=== PATIENT | female | born 1955 | race Caucasian/White ===

== ENCOUNTER 2018-08-28 13:52 | Day surgery (SDC) | payer OTHER, SELFPAY ==
--- NOTE | 2018-08-28 | PATH_ITS ---
[facility] Accession Number: [id number] . 01 Material submitted: . SIGMOID POLYP AT 20 . 02 Diagnosis: Sigmoid Polyp, Polyp at 20, Biopsy: Tubular adenoma. V/08/29/2018 . 02 Electronically signed: . Debbie Rolle MD, Pathologist NPI- [id number] . 01 Gross description: . Received in one formalin-filled container, labeled with the patient's name and labeled sigmoid polyp at 20, are three 0.1-0.3 cm portions of tissue, entirely submitted in one cassette. ([id number]) /FRR . 02 Pathologist provided ICD-10: D12.5 . 02 CPT . 784411 Performed at: 01 [facility] [address] [id number] MD Ranjith Azul MD Phone: [phone] Performed at: 02 [facility] [address] [place], [place] [id number] MD Debbie Rolle MD Phone: [phone]
[2018-08-28] MEDS: SODIUM CHLORIDE 0.9% 1,000 ML 200 ML IV (13:15)
[2018-08-28 14:17] VITALS: BP 132/71; PULSE 73; RESP 16; TEMP 36.6; BMI 36.1
--- NOTE | 2018-08-28 14:50 | PM.HP.1 ---
History of Present Illness Date Patient Seen: 08/28/18 Time Patient Seen: 14:50 Chief complaint: colonoscopy [id number] Narrative: 63-year-old female who presents for colorectal screening. She has never had any such examination in the past. She denies any gastrointestinal symptoms recently. No nausea, vomiting, abdominal pain, loss of appetite, unexplained weight loss, melena, hematochezia, bright red blood per rectum, change in bowel habits, constipation, or diarrhea. Patient History Medical History No significant past medical history (Acute) Surgical History History of dilation of urethra (Acute) Family & Social History Family History: Reviewed 08/28/18 by Johny Caceres MD Review of Systems Review of Systems All systems reviewed & are unremarkable except as noted in HPI and below Exam Narrative Exam Narrative: Well-nourished well-developed female in no acute distress. Alert oriented x3 Regular rate and rhythm Abdomen soft and nondistended Extremities show no clubbing or cyanosis Objective Labs Labs: No recent laboratory or radiographic studies review Assessment & Plan Plan: Assessment/Plan Narrative: 63-year-old female requiring colorectal screening by age criteria. In fact, she is overdue for such. I recommended colonoscopy. Technical details of the procedure were explained. Risks, benefits, alternatives were discussed. Risks including but not limited to sedation, aspiration, bleeding, pain, missed lesion, incomplete examination, need for further radiographic studies, colonic perforation, need for major abdominal surgery, and all attendant risks of major surgery were discussed in detail. All questions were answered to her satisfaction, and she voiced understanding. Consent was placed on the chart. We will proceed as above.
--- NOTE | 2018-08-28 14:53 | P.HP_ITS ---
History of Present Illness Date Patient Seen: 08/28/18 Time Patient Seen: 14:50 Chief complaint: colonoscopy [id number] Narrative: 63-year-old female who presents for colorectal screening. She has never had any such examination in the past. She denies any gastrointestinal symptoms recently. No nausea, vomiting, abdominal pain, loss of appetite, unexplained weight loss, melena, hematochezia, bright red blood per rectum, change in bowel habits, constipation, or diarrhea. Patient History Medical History No significant past medical history (Acute) Surgical History History of dilation of urethra (Acute) Family & Social History Family History: Reviewed 08/28/18 by Johny Caceres MD Review of Systems Review of Systems All systems reviewed & are unremarkable except as noted in HPI and below Exam Narrative Exam Narrative: Well-nourished well-developed female in no acute distress. Alert oriented x3 Regular rate and rhythm Abdomen soft and nondistended Extremities show no clubbing or cyanosis Objective Labs Labs: No recent laboratory or radiographic studies review Assessment & Plan Plan: Assessment/Plan Narrative: 63-year-old female requiring colorectal screening by age criteria. In fact, she is overdue for such. I recommended colonoscopy. Technical details of the procedure were explained. Risks, benefits, alternatives were discussed. Risks including but not limited to sedation, aspiration, bleeding, pain, missed lesion , incomplete examination, need for further radiographic studies, colonic perforation, need for major abdominal surgery, and all attendant risks of major surgery were discussed in detail. All questions were answered to her satisfaction, and she voiced understanding. Consent was placed on the chart. We will proceed as above.
--- NOTE | 2018-08-28 14:53 | PM.PREOP ---
Pre-operative Note Interval Note History & Physical reviewed/Exam performed by Physician: Yes Changes to H&P: No H&P completed within 30 days and has changed as indicated here:: Patient seen and examined. History and physical examination documented on the chart. Obviously, no changes in the last 10 min. Proceed with colonoscopy today as planned. ASA Class (for procedural sedation): I
[2018-08-28] MEDS: MIDAZOLAM 5 MG/5 ML VIAL IV (15:20)
[2018-08-28] MEDS: fentaNYL 250 MCG/5 ML INJ IV (15:21)
--- NOTE | 2018-08-28 15:24 | PM.OP.ENDO ---
Operative Date/Time/Diagnoses Date of procedure: 08/28/18 Time of procedure: 15:24 Pre-op diagnosis: Colorectal screening Post-op diagnosis: other (Diverticulosis and sigmoid polyp) Procedure & Clinicians Study performed: 1. Sedation per surgeon 2. Colonoscopy with cold forceps polypectomy Same procedure as scheduled: Yes Indications: 63-year-old female who presents for colorectal screening. She has had no prior examination for such. Colonoscopy is currently recommended Surgeon: Johny Caceres Procedure Notes SCOAP/Timeout: Yes Procedure in detail: After obtaining informed consent, the patient was brought to the GI suite and placed in the left lateral decubitus position on the examination table. After placement of appropriate monitors, the patient was given incremental doses of Versed and Fentanyl until an appropriate level of sedation was achieved. A time out was held per SCOAP protocol. A digital rectal examination was performed and did not reveal any masses or obstructing lesions. The colonoscope was gently passed into the patient's anus and the entire colon navigated to the level of the cecum with minimal difficulty. Once in the cecum, the scope was withdrawn being sure to go before and beyond all mucosal folds and prominences and get an excellent examination. The findings are noted above. At the level of the rectal vault, the scope was retroflexed and the internal anal canal was examined. The scope was straightened and air aspirated from the colon. The instrument was removed from the patient's body and the procedure was concluded. The patient was allowed to awaken from sedation without difficulty and taken to the post-anesthesia care unit in good condition. Scope withdrawal time: 9:48 min Sedation minutes: 17 Findings: diverticulosis and polyp Specimen(s): other (Sigmoid polyp at 20 cm) Complications: none Recommendations: Colonscopy in 5 years, High fiber diet and Will call with biopsy results Plan for aftercare: 1. Discharge home Follow up: as needed Disposition: PACU
[2018-08-28 15:25] VITALS: BP 104/63; PULSE 75; RESP 15; TEMP 36.5; O2SAT 94
[2018-08-28 15:30] VITALS: BP 104/63; PULSE 84; RESP 23; TEMP 36.7; O2SAT 94
[2018-08-28 15:35] VITALS: BP 118/77; PULSE 77; RESP 20; TEMP 36.6; O2SAT 98
[2018-08-28 15:52] VITALS: BP 129/60; PULSE 71; RESP 16; TEMP 36.7; O2SAT 99
--- NOTE | 2018-08-28 16:08 | SUR.PHASEII ---
stable phase 2, friend arrived, d/c instructions discussed.. both voiced an understanding.
== END 2018-08-28 16:09 | disposition home or self-care (01) ==
PROVIDERS: PCP Family Medicine; Visit Provider Surgery
PROC: 0DJD8ZZ Inspection of Lower Intestinal Tract, Via Natural or Artificial Opening Endoscopic (ICD-10-PCS; CPT 45378; principal; 2018-08-28 15:00)
DX: Z12.11 Encounter for screening for malignant neoplasm of colon (principal); K57.30 Diverticulosis of large intestine without perforation or abscess without bleeding; D12.5 Benign neoplasm of sigmoid colon
CPT/HCPCS: 45380; 99152; J2250; J3010

== ENCOUNTER → 2019-04-22 16:46 | Outpatient (CLI) | payer OTHER, SELFPAY ==
[2019-04-22 16:57] LABS: Bacteria Urine None Seen
[2019-04-22 17:12] LABS: Hematocrit 42.6 % (36-46); Hemoglobin 13.8 g/dL (12.0-16.0); Mean Corpuscular HGB Conc 32.5 % (30-36); Mean Corpuscular Hemoglobin 27.4 PG (26-34); Mean Corpuscular Volume 84.3 fL (80-100); Platelet Count 286 X10^3/uL (150-400); Red Blood Cell Count 5.05 X10^6/uL (4.0-5.2); Red Cell Distribution Width 14.2 % (11.6-14.8); White Blood Cell Count 8.9 X10^3/uL (4.5-11.0)
[2019-04-22 17:13] LABS: Appearance Urine UA CLEAR; Bilirubin Urine UA NEGATIVE (NEGATIVE); Color Urine UA YELLOW; Glucose Urine UA NEGATIVE (Negative); Ketones Urine UA NEGATIVE (NEGATIVE); Leukocyte Esterase Urine UA NEGATIVE (NEGATIVE); Nitrite Urine UA NEGATIVE (Negative); Occult Blood Urine UA TRACE-LYSED (Negative); Protein Urine UA NEGATIVE (Negative); Urobilinogen Urine UA 0.2 E.U./dL (0.2); pH Urine UA 6.5 (4.5-8.0)
[2019-04-22 17:30] LABS: Hemoglobin A1C% w Est Avg Glu 5.4 % (4.0-6.0)
[2019-04-22 17:36] LABS: Culture Indicated Urine Cult Not Indicated; RBC Urine 0-1/HPF (0-5/HPF); Squamous Epithelial Cell Urine 0-1 /HPF (0-5/HPF); WBC Urine 0-1/HPF (0-5/HPF)
[2019-04-22 18:18] LABS: BUN Creatinine Ratio 37.5 (6-22); Blood Urea Nitrogen 15 mg/dL (7-17); Calcium 9.9 mg/dL (8.4-10.2); Carbon Dioxide 24 mmol/L (22-32); Chloride 104 mmol/L (98-107); Estimated Glomerular Filt Rate > 60.0 mL/min (>60); Glucose 85 mg/dL (80-110); HEMOLYSIS < 15 (0-50); Sodium 138 mmol/L (137-145)
== END ==
PROVIDERS: PCP Family Medicine; Visit Provider Orthopaedic Surgery
DX: N39.0 Urinary tract infection, site not specified (principal); R73.9 Hyperglycemia, unspecified; Z01.818 Encounter for other preprocedural examination
CPT/HCPCS: 36415; 80048; 81001; 83036; 85027; 93005

== ENCOUNTER → 2020-03-22 16:56 | Outpatient (CLI) | payer OTHER, SELFPAY ==
--- NOTE | 2020-03-22 | DI.RAD.S_ITS ---
PROCEDURE: XR HIP W PEL IF DONE RT 2V INDICATIONS: RIGHT HIP PAIN TECHNIQUE: 2 views of the hip were acquired. COMPARISON: None. FINDINGS: Bones: No fractures or dislocations. No suspicious bony lesions. The visualized pelvic ring appears intact. Moderate asymmetric right hip joint narrowing with periarticular osteophyte formation. Degenerative disc and facet disease involves the inferior lumbar spine. Soft tissues: No suspicious soft tissue calcifications or masses. IMPRESSION: 1. Moderate asymmetric right hip joint degeneration. Dictated by: Will Patterson [facility] Interpreted: Freddie Sandoval MD on 03/22/2020 at 17:12 Approved by: Freddie Sandoval M.D. on 03/22/2020 at 18:20
== END ==
PROVIDERS: PCP Family Medicine; Referring Provider Family Medicine; Visit Provider Family Medicine
DX: M25.551 Pain in right hip (principal); M16.11 Unilateral primary osteoarthritis, right hip
CPT/HCPCS: 73502

== ENCOUNTER → 2021-08-30 11:30 | Outpatient (CLI) | payer OTHER, SELFPAY ==
[2021-08-30 12:19] LABS: Add Manual Diff / Slide Review NO; Basophils Absolute Auto 100 /uL (0-100); Eosinophils Absolute Auto 300 /uL (0-450); Eosinophils Percent Auto 4.2 % (2-4); Hematocrit 42.2 % (36-46); Hemoglobin 13.6 g/dL (12.0-16.0); Lymphocytes Absolute Auto 2000 /uL (1100-4500); Lymphocytes Percent Auto 27.3 % (25-40); Mean Corpuscular HGB Conc 32.2 % (30-36); Mean Corpuscular Volume 83.7 fL (80-100); Monocytes Absolute Auto 900 /uL (0-900); Monocytes Percent Auto 12.3 % (3-14); Neutrophils Absolute Auto 4100 /uL (1500-7000); Neutrophils Percent Auto 55.2 % (50-75); Platelet Count 257 X10^3/uL (150-400); Red Blood Cell Count 5.04 X10^6/uL (4.0-5.2); Red Cell Distribution Width 14.2 % (11.6-14.8); White Blood Cell Count 7.4 X10^3/uL (4.5-11.0)
[2021-08-30 12:36] LABS: Appearance Urine UA CLEAR; Bilirubin Urine UA NEGATIVE (NEGATIVE); Color Urine UA YELLOW; Glucose Urine UA NEGATIVE (Negative); Ketones Urine UA TRACE (NEGATIVE); Leukocyte Esterase Urine UA NEGATIVE (NEGATIVE); Nitrite Urine UA NEGATIVE (Negative); Occult Blood Urine UA 2+ (Negative); Protein Urine UA NEGATIVE (Negative); Urobilinogen Urine UA 0.2 E.U./dL (0.2)
[2021-08-30 13:00] LABS: Bacteria Urine None Seen; RBC Urine 1-5/HPF (0-5/HPF); Squamous Epithelial Cell Urine 0-1 /HPF (0-5/HPF); WBC Urine 0-1/HPF (0-5/HPF)
[2021-08-30 13:01] LABS: Culture Indicated Urine Cult Not Indicated
[2021-08-30 13:06] LABS: Blood Urea Nitrogen 17 mg/dL (7-17); Calcium 9.5 mg/dL (8.4-10.2); Carbon Dioxide 25 mmol/L (22-32); Chloride 105 mmol/L (98-107); Estimated Glomerular Filt Rate > 60.0 mL/min (>60); Glucose 99 mg/dL (80-110); HEMOLYSIS < 15 (0-50); Potassium 4.3 mmol/L (3.4-5.1); Sodium 138 mmol/L (137-145)
[2021-08-30 13:08] LABS: Hemoglobin A1C% w Est Avg Glu 5.7 % (4.0-6.0)
== END ==
PROVIDERS: PCP Family Medicine; Referring Provider Orthopaedic Surgery; Visit Provider Orthopaedic Surgery
DX: Z01.812 Encounter for preprocedural laboratory examination (principal); Z01.818 Encounter for other preprocedural examination; R73.9 Hyperglycemia, unspecified; N39.0 Urinary tract infection, site not specified
CPT/HCPCS: 36415; 80048; 81001; 83036; 85025; 93005; 93010

== ENCOUNTER → 2021-11-06 11:15 | Outpatient (CLI) | payer OTHER, SELFPAY ==
[2021-11-06 15:26] LABS: COVID19 -Nasal RAPID Negative (Negative)
== END ==
PROVIDERS: PCP Family Medicine; Visit Provider Nurse Practitioner Family
DX: Z20.822 Contact with and (suspected) exposure to COVID-19 (principal)
CPT/HCPCS: 87635; C9803

== ENCOUNTER 2021-11-07 06:16 | Day surgery (SDC) | payer OTHER, SELFPAY ==
[2021-11-02 12:03] VITALS: BMI 34.0
[2021-11-07] VITALS (9 sets, daily range): BP systolic 113–135; BP diastolic 67–81; PULSE 64–84; RESP 10–18; TEMP 36.3–37; O2SAT 91–98; BMI 34.0
--- NOTE | 2021-11-07 | DI.RAD.S_ITS ---
PROCEDURE: XR HIP W PEL IF DONE RT 2V INDICATIONS: anterior right hip repacement TECHNIQUE: 6 intraoperative fluoroscopic view(s) of the hip acquired. COMPARISON: [facility], , XR HIP W PEL IF DONE RT 2V, 03/22/2020, 16:54. FINDINGS: Intraoperative fluoroscopic images shows right total hip arthroplasty in progress. IMPRESSION: Fluoro guidance was provided intraoperatively for right total hip arthroplasty. Dictated by: Salomón Perry M.D. on 11/07/2021 at 11:52 Approved by: Salomón Perry M.D. on 11/07/2021 at 11:52
--- NOTE | 2021-11-07 06:00 | DI.RAD.S_ITS ---
PROCEDURE: XR HIP W PEL IF DONE RT 2V INDICATIONS: SEAN TECHNIQUE: AP pelvis and lateral view of the right hip acquired. COMPARISON: [facility], [facility]ONDRA, XR HIP W PEL IF DONE RT 2V, 11/07/2021, 9:43. FINDINGS: Bones: Patient is status post right hip arthroplasty, with hardware components in expected positions. The hip joint appears congruent. The visualized bony structures appear intact. Soft tissues: Overlying postoperative changes are noted. No suspicious soft tissue densities. IMPRESSION: Postop changes from right total hip arthroplasty with anatomic right hip alignment. Dictated by: Salomón Perry M.D. on 11/07/2021 at 11:50 Approved by: Salomón Perry M.D. on 11/07/2021 at 11:51
[2021-11-07] MEDS: ACETAMINOPHEN 325 MG TABLET 975 MG PO (06:54)
[2021-11-07] MEDS: CELECOXIB 200 MG CAPSULE PO (06:54)
[2021-11-07] MEDS: VANCOMYCIN 1,000 MG/200 ML PIGGYBACK 200 MG IV (06:54)
[2021-11-07] MEDS: LACTATED RINGERS 1,000 ML 42 ML IV ×3 (06:55→11:13)
--- NOTE | 2021-11-07 07:41 | PM.PREOP ---
Pre-operative Note COVID-19 COVID-19 status: Negative Interval Note History & Physical reviewed/Exam performed by Physician: Yes Changes to H&P: No
--- NOTE | 2021-11-07 07:45 | PM.OP.1 ---
Operative Date/Time/Diagnoses Date of procedure: 11/07/21 Time of procedure: 07:45 Pre-op diagnosis: right hip OA Post-op diagnosis: same Procedure & Clinicians Procedure: right hip OA Same procedure as scheduled: Yes Indications: The patient has had progressively worsening right hip pain with radiographic changes consistent with arthritis. Non-operative management has failed and the patient has requested total hip replacement. The risks, benefits and alternatives to surgery were discussed with the patient prior to proceeding. Risks discussed included, but were not limited to, failure to relieve pain, leg length discrepancy, dislocation, stiffness, infection, nerve damage, deep venous thrombosis, pulmonary embolism, stroke, coma, heart attack, permanent paralysis and , as well as the potential need for eventual revision of the prosthetic. Surgeon: Keli Chadwick Dot Net Developer: Hamida Casarez Anesthesia Type: General and Spinal Operative Notes Findings: Severe right hip osteoarthritis, adequate bone, soft femur, adequate stability Closure Type: primary Specimen(s): none sent Prosthetic devices, grafts, tissues, transplants, or devices: [employer]wick [employer]hew size 52 R3 cup, neutral poly liner, 36 x -3 Oxinium head,one 15 mm x 6.5 screw, size 10 standard offset anthology Estimated Blood Loss (mL): 250 Blood products transfused: none Procedure in detail: The patient was brought to the operating room. Patient was carefully positioned in the supine position. Time-out was performed and antibiotics were given. Anesthesia was induced. She was positioned in the on the table in order to allow hyperextension of the hip. The right lower extremity was prepped and draped in a standard sterile fashion. An anterior right hip incision was made 1 fingerbreadth lateral to the anterior superior iliac spine and extended distally towards the greater trochanter. Dissection was carried out through skin and subcutaneous tissues. Superficial hemostasis was achieved. The fascia over the tensor fascia anjelica was defined and incised with a knife. Two Allis clamps were used to grasp the fascia. Tensor fascia anjelica was retracted laterally. A gelpi retractor was placed. Dissection was carried out down along the neck. The circumflex vessels were carefully identified and cauterized with the Aqua Mantis. There was good visualization of the femoral neck. A Cobra was placed superior to the neck and the gluteus fibers were carefully stripped from that superior aspect of the capsule. A 2nd retractor was placed along the inferior aspect of the neck. The rectus insertion along the capsule was partially released. A 3rd retractor that was then gently placed over the rim of the acetabulum under the rectus. Capsule was carefully incised and released from the intertrochanteric line circumferentially superior to the mid sagittal line and inferiorly to the mid sagittal line until the lesser trochanter was palpable. A tag stitch was placed both in the superior and inferior limb of the capsular insertion. Along the acetabulum capsule was also released up to the mid sagittal 12:00 position. A portion of the labrum was resected. A saw was used to perform an osteotomy at the level of the intertrochanteric line and the junction of the superior femoral neck leaving approximately 1 finger breath of residual inferior neck above the lesser trochanter. A 2nd cut was made along the femoral neck at the base of the head and a napkin ring of neck was removed. Corkscrew was placed in the femoral head and the head was removed without difficulty. Retractors were then repositioned around the acetabulum. Residual labrum was resected and additional osteophytes were removed. A reamer that was 4 mm below the templated size was placed by hand in the acetabulum and it was reamed to centralize the acetabulum. It was then reamed up to 2 under the templated size and fluoroscopy was brought in to confirm the position of the reaming and depth of reaming. I reamed 1 under the anticipated size. A trial cup was placed and noted that it was appropriately sized and fluoroscopy confirmed position and depth. The component was open and inserted without difficulty fluoroscopic imaging was used to confirm that the cup had been adequately seated and was well positioned. It was further stabilized with a single screw. Neutral poly liner was placed. The cup was tested and noted to be stable. Attention was then directed to the femur. The femur was gently hyperextended additional capsular release was performed as needed in order to allow adequate visualization of the proximal femur with elevation of the femur. Patient was placed in a hyperextended slightly adducted position with maximum external rotation. Box osteotome was used to check for any residual neck as well as sclerotic bone along the trochanter. Carpenter pepper was placed in the femur. Additional broaching was performed. Canal finder was used to determine the alignment of the canal and position. Size 1 broach was placed. The canal was then appropriately broached up to the templated size as long as there was adequate stability of the broach and serial advancement of the broach without excessive impingement. Specific attention was directed at avoiding varus attempting to direct the distal aspect of the broach more anteriorly and avoiding excessive anteversion. Trial reduction showed acceptable range of motion, good stability, no posterior impingement, moravian of leg length and appropriate lateral shuck. I also hyperflexed the hip and checked that there was no impingement anteriorly and there was good stability with flexion, adduction and internal rotation. Marcaine and Exparel were injected. The stem was placed without difficulty. Repeat trial reduction and x-ray showed acceptable overall position, length, and no evidence of the femoral fracture. Final head was placed. Wound was meticulously irrigated with normal saline. The hip was reduced and additional Exparel and Marcaine were injected. The capsule was closed with interrupted nonabsorbable sutures. The fascia of the tensor was closed with interrupted and running Vicryl. No drain was placed. Any tensor fascia anjelica muscle that appeared to be contused or injured which was a minimal amount was carefully resected. Capsule around the tensor was injected with Exparel and Marcaine. The skin was closed with barbed stitches for the subcutaneous tissue and skin. We also used surgical glue. The wound was dressed sterilely. Brief Betadine soak was also used and was meticulously irrigated with normal saline. Patient was transferred to recovery room in satisfactory condition. Complications: none Post-operative Condition: stable Disposition: Acute Care Plan for aftercare: The patient will be maintained on a standard total hip replacement protocol with weight bearing as tolerated and anterior hip precautions. The patient will receive Aspirin and sequential compression devices for DVT prophylaxis. The patient will be discharged home when safe for the home environment.
[2021-11-07] MEDS: CEFAZOLIN 2 GM/20 ML SYRINGE IV ×2 (08:00→17:30)
[2021-11-07] MEDS: TRANEXAMIC ACID 1,000 MG VIAL 2000 MG INJ ×2 (08:15→10:16)
--- NOTE | 2021-11-07 08:57 | SUR.OPER ---
Supine on padded Collins table with bilateral legs secured in padded positioning boots and suspended in positioning spars, operative leg in traction per surgeon. Head on one pillow. Arm on non-operative side secured on padded armboard <90 degrees abduction. Arm on operative side padded and resting across chest then secured with tape over sheet. Padded perineal post in place per surgeon.
[2021-11-07] MEDS: BUPIVACAINE 0.25% (PF) 60 ML, EPINEPHrine 0.3 MG INJ (09:02)
[2021-11-07] MEDS: BUPIVACAINE LIPOSOME 266 MG/20 ML VIAL INJ (09:03)
[2021-11-07] MEDS: OXYCODONE IR 5 MG TABLET PO (11:09)
[2021-11-07] MEDS: ONDANSETRON 4 MG/2 ML INJ IV (11:09)
[2021-11-07] MEDS: LACTATED RINGERS 1,000 ML 125 ML IV ×2 (11:30→22:02)
[2021-11-07] MEDS: HYDROMORPHONE 2 MG TABLET PO (11:45)
--- NOTE | 2021-11-07 14:05 | PT.IIE ---
Current Diagnoses Unilateral primary osteoarthritis, right hip (11/07/21) Surgery Performed Operation Date: 11/07/21 07:45 Actual Procedures p Total Hip Arthroplasty/Anterior Approach(Right) - Keli Chadwick MD Medical History (Last Updated 11/02/21 @ 12:09 by Chelsea Iniguez RN) Depression No significant past medical history Osteoarthritis Physical Therapy Inpatient Evaluation/Re-Eval M1 PT/OT-IP Prior Functional Status Start: 11/07/21 15:30 Freq: NEEDED Status: Active Protocol: Document 11/07/21 14:05 AB (Rec: 11/07/21 15:41 AB [id number]) Medical Review Prior Functional Status Medical History Reviewed Yes Communication able to make needs known Mobility and Gait pt stated that she is modified idnependent with all mobilities and ambulation without AD but started using a SPC for ~ 1 month due to hip pain Social History Household Members none Living Arrangements House Number of Floors (Floors) One Floor Number of Stairs To Enter/Railing? 2 steps without rails to enter Home Environment Standard Height Toilet,Walk in Shower Home Equipment Straight Cane,Raised Toilet Seat w/Armrests,Shower Seat without Backrest,Hand Held Shower Additional Social History Comment pt plans to go to her sister's house for ~ 8 days and then go back to her own home and her daughters will stay with her to assist her at her house ; home set up is regarding pt' s sister's house pt has an Up walker M2 PT-IP Current Condition Start: 11/07/21 15:30 Freq: NEEDED Status: Active Protocol: Document 11/07/21 14:05 AB (Rec: 11/07/21 15:41 AB [email or web address]) Physical Therapy Current Condition Current Condition Evaluation Date 11/07/21 Treatment Diagnosis s/p R SEAN anterior approach; difficulty in walking Onset Date 11/07/21 M3 PT-IP Subjective Start: 11/07/21 15:30 Freq: NEEDED Status: Active Protocol: Document 11/07/21 14:05 AB (Rec: 11/07/21 15:41 AB [id number]) Subjective Physical Therapy Visit Type Type Initial Evaluation Visit Start Time 14:05 Visit Stop Time 15:08 Total Visit Minutes 63 Number of PUGGER HELPER Visits 0 Physical Therapy Visit Comments Patient Comments pt is agreeable to do PT Therapy Pain Assessment Pain Present Pain Present Denied Pain M4 PT-IP Mobility and Gait Start: 11/07/21 15:30 Freq: NEEDED Status: Active Protocol: Document 11/07/21 14:05 AB (Rec: 11/07/21 15:41 AB [id number]) PT-Bed Mobility Assessment Supine to Sit Supine to Sit Standby Assistance,1 Person Assistance Sit to Supine Sit to Supine Standby Assistance,1 Person Assistance PT-Transfer Assessment Sit to and From Stand Sit to and from Stand Contact Guard Assistance,1 Person Assistance,Use of Upper Extremities Equipment Transfer Assistive Device Gait Belt,Front Wheeled Walker Orthotic/Prosthetic Devices or Brace: No Transfers Transfer Destination Toilet Transfer Technique ambulated Transfer Ability Level of Assist Minimal Assistance Comments Mobility Comments educated pt on anterior hip precautions. completed supine to sit SBA. able to sit on EOB SBA. pt without c/o dizziness/nausea. BP: 138/67. completed sit to stand min A and ambulated to the toilet using FWW min A and cues. educated on doing toileting needs and cues with hip precautions. completed sit to stand from the toilet CGA and ambulated to the sink min A using FWW. able to maintain standing balance CGA while completing handwashing. pt agreed to ambulate further a completed 35 ft using FWW min A. pt went back to bed. completed sit to supine SBA. positioned in bed. call light and table placed within reach . ice pack provided. talked to pt regarding FWW use for home. pt requested FWW to be dispensed to her throught the hospital. will obtain MD orders and dispense upon d/c. Gait Assessment Gait Gait Assistance Required: Minimum Assistance Distance (Feet) 35 Able to Maintain Weight Bearing Status Yes During Gait Assistive Devices Assistive Device Gait Belt Orthotic/Prosthetic Devices or Brace: No Gait Deviations General Gait Pattern Antalgic Factors Limiting Gait Function Factors Limiting Gait Function Decreased Activity Tolerance, Decreased Strength,Limited Range of Motion,Poor Balance, Poor Safety Awareness PT-Balance Assessment Sitting Balance and Reactions Static Sitting Balance Ability Good Dynamic Sitting Balance Ability Good Standing Balance and Reactions Static Standing Balance Ability Fair Dynamic Standing Balance Ability Fair Device Used FWW M5 PT-IP Objective Assessments Start: 11/07/21 15:30 Freq: NEEDED Status: Active Protocol: Document 11/07/21 14:05 AB (Rec: 11/07/21 15:41 [id number]) Orientation Orientation/Cognition Level of Alertness Alert Orientation Name,Place,Situation Language Function Ability No Deficits Noted Safety Awareness Understands Safety Issues Memory Description Short Term Impaired Gross Range of Motion Lower Extremity ROM Assessment Within Functional Limits Strength Lower Extremity Strength Assessment Right Impaired Hip 3+/5 Knee 4-/5 Coordination Assessment Gross Coordination Gross Coordination WNL Sensation Assessment Sensation Gross Sensation WNL Muscle Tone Muscle Tone WNL Yes M6 PT-IP Treatment Start: 11/07/21 15:30 Freq: NEEDED Status: Active Protocol: Document 11/07/21 14:05 AB (Rec: 11/07/21 15:41 [id number]) Physical Therapy Treatment Education Education Provided Precautions,Weight Bearing Status,Post-Op Packet,Safety M7 PT-IP Assessment and Plan Start: 11/07/21 15:30 Freq: NEEDED Status: Active Protocol: Document 11/07/21 14:05 AB (Rec: 11/07/21 15:41 [email or web address]) PT Summary Assessment and Plan Potential Rehabilitation Potential Good Status of Condition at Evaluation Stable Summary Impairments Pain,ROM,Strength,Balance, Coordination,Sensation,Tone, Cognition,Bed Mobility, Transfers,Gait,Activity Tolerance Assessment Summary pt requiring min A with ambulation using FWW and plans to go home with her sister to assist her. pt stated that she has outpt PT scheduled. will continue to assess progress. Goals Bed Mobility Goal Independent Transfer Goal Independent,Front Wheeled Walker Gait Goal Independent,Front Wheel Walker Gait Distance 200 Other Goals up/down 2 steps SPC /STEEPING PRESS OPERATOR min A Days to Meet Goals 5 Frequency of Treatment Frequency Of Treatment Twice a Day Treatment Plan Physical Therapy Treatment Plan Bed Mobility Training,Transfer Training,Gait Training, Therapeutic Exercise,Balance Retraining,Post Op Education, Discharge Planning,Hot or Cold Pack,Neuromuscular Re-ed, Coordination Retraining,Manual Therapy Precautions Anterior Hip Precautions No Hip Extension,No Hip External Rotation Weight Bearing Status Weight Bearing Status Weight Bear as Tolerated Allowed Weight Bearing Amount (enter % RLE WBAT or #) (%) Recommendations To Nursing Amount of Assist Needed 1 Person Assist Discharge Recommendations PT Discharge Recommendations Home with Assistance, Outpatient PT Equipment Needed for Home Before FWW Discharge Transportation Needs at Discharge Private Vehicle
[2021-11-07] MEDS: ACETAMINOPHEN 325 MG TABLET 650 MG PO ×2 (14:39→21:33)
[2021-11-07] MEDS: GABAPENTIN 300 MG CAPSULE PO ×2 (14:39→21:34)
[2021-11-07] MEDS: OXYCODONE IR 10 MG TABLET PO ×2 (14:39→22:04)
--- NOTE | 2021-11-07 19:50 | PC.NURSE ---
Pt arrived from PACU at 1130, A&OX3. VSS, afebrile on RA. Aquacel to R hip c/d/i. She reports pain well controlled with prn medications. PT works with her and she ambulates to the bathroom and voids. She denies numbness or tingling to BLE's. She has good po intake. IVF LR at 100ml/hr. Continuous monitoring.
[2021-11-07] MEDS: DOCUSATE 100 MG CAPSULE PO (21:34)
[2021-11-07] MEDS: ASPIRIN EC 81 MG TABLET PO (21:34)
[2021-11-07] MEDS: SODIUM CHLORIDE 0.9% FLUSH 10 ML IV (21:36)
[2021-11-08] VITALS: BP 108/63; PULSE 68; RESP 17; TEMP 36.6; O2SAT 95
[2021-11-08] MEDS: CEFAZOLIN 2 GM/20 ML SYRINGE IV (00:41)
[2021-11-08] MEDS: OXYCODONE IR 10 MG TABLET PO ×4 (00:44→09:55)
[2021-11-08 03:00] VITALS: BP 108/70; PULSE 67; RESP 17; TEMP 36.2; O2SAT 95
[2021-11-08 05:57] LABS: Hematocrit 31.4 % (36-46); Hemoglobin 10.3 g/dL (12.0-16.0)
--- NOTE | 2021-11-08 07:54 | PM.DS.1 ---
History of Present Illness History of Present Illness Date Patient Seen: 11/08/21 Time Patient Seen: 07:54 Chief complaint: Hip pain Narrative: Patient notes mild right hip pain. Denies fever chills. No nausea vomiting. Patient states she has some assistance at home. Otherwise without complaints. Discharge Providers Provider Discharge Date: 11/08/21 Primary care physician: Reynold Olivarez MD Consults: 11/07/21 06:00 Consult to Anesthesiology Routine Comment: Consulting Provider: Anesthesiologist Reason for consultation: Regional block for post operative pain control 11/07/21 11:01 Consult to Discharge Planning Routine Comment: Consult to Physical Therapy Evaluate & Treat Comment: Physician Instructions: post op SEAN protocol Consult to Respiratory Therapy Evaluate & Treat Comment: Physician Instructions: Evaluate and treat Discharge provider: Dima Gu PA-C Summary Hospital Course Discharge Diagnosis: Severe right hip osteoarthritis Hospital Course: right hip OA Same procedure as scheduled: Yes Indications: The patient has had progressively worsening right hip pain with radiographic changes consistent with arthritis. Non-operative management has failed and the patient has requested total hip replacement. The risks, benefits and alternatives to surgery were discussed with the patient prior to proceeding. Risks discussed included, but were not limited to, failure to relieve pain, leg length discrepancy, dislocation, stiffness, infection, nerve damage, deep venous thrombosis, pulmonary embolism, stroke, coma, heart attack, permanent paralysis and , as well as the potential need for eventual revision of the prosthetic. Surgeon: Keli Chadwick Electronic Engineering Draftsperson: Hamida Casarez Anesthesia Type: General and Spinal Operative Notes Findings: Severe right hip osteoarthritis, adequate bone, soft femur, adequate stability Closure Type: primary Specimen(s): none sent Prosthetic devices, grafts, tissues, transplants, or devices: Chadwick [employer] Nephew size 52 R3 cup, neutral poly liner, 36 x -3 Oxinium head,one 15 mm x 6.5 screw, size 10 standard offset anthology Estimated Blood Loss (mL): 250 Blood products transfused: none Patient admitted to the hospital for right total hip arthroplasty. Patient consented to the same. Patient taken operating room underwent right total hip arthroplasty. Patient back in her room recovering well as in stable condition. Patient will work with physical therapy this morning. Discharge home after physical therapy is safe for home environment. Status at Discharge Cognitive/behavioral status at discharge: oriented and at baseline, oriented Functional status at discharge: uses cane/walker Overall status at discharge: patient is progressing back to baseline Exam Vital Signs (past 8 hours): - 11/08/21 00:00 11/08/21 03:00 Temperature 97.8 F 97.2 F L Pulse Rate 68 67 Respiratory Rate 17 17 Blood Pressure 108/63 108/70 Pulse Oximetry 95 95 Oxygen Delivery Method Room Air Oxygen Flow Rate 0 Narrative Exam Narrative: Pleasant female resting comfortably in bed in no apparent distress. Dressing is Clean, dry, intact.. Motor functions intact bilateral lower extremities. Sensation grossly intact to light touch bilateral lower extremities. Objective Labs Result Diagrams: 11/08/21 05:19 Labs: Laboratory Results - last 24 hr 11/08/21 05:19 Hgb 10.3 L Hct 31.4 L PFSH Medical History Depression No significant past medical history Osteoarthritis Surgical History History of dilation of urethra History of surgery 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) Social History household members: none Smoking Status: Current some day smoker alcohol intake: current Discharge Assessment & Plan Assessment and Plan Assessment: Patient progressing as expected status post right total hip arthroplasty Plan of Treatment: Discharge home today in stable condition Discharge Plan Discharge Plan Patient Disposition: Home Discharge orders & Medications Discharge Orders: Discharge (Order); Ordered 11/08/21 Ordered By: Dima Gu Prescriptions: New acetaminophen 325 mg Tablet 650 mg PO TID Qty: 60 0RF polyethylene glycol 3350 17 gram Powder In Packet 17 gm PO DAILY PRN (Reason: Constipation) Qty: 20 0RF aspirin 81 mg Tablet,Delayed Release (Dr/Ec) 81 mg PO BID Qty: 60 0RF docusate sodium 100 mg Capsule 100 mg PO BID Qty: 20 0RF oxycodone 10 mg Tablet 10 mg PO Q3HR PRN (Reason: Pain, Severe (7-10)) Qty: 60 0RF Continued gabapentin 300 mg Capsule 300 mg PO TID 0RF Follow up/Referrals: Reynold Olivarez MD [Primary Care Provider] - Keli Chadwick MD [Physician] - As previously scheduled (Follow up with Dr Chadwick on 11/22/2021 @ 11:00 am at [facility] in [place].) Diet/Activity/Treatments Diet: Diet as Tolerated Activity: Activity as tolerated. Anterior hip precautions on RIGHT. Cold/Heat Therapy: Ice to hip as needed for pain. Skin/Wound/Dressing Care Report to your healthcare provider any signs of infection, such as:: chills, fever, night sweats, increased pain, unusual drainage and unusual redness Dressing: May shower. Leave dressing in place until follow up appointment. No bathing or otherwise soaking incision. Call the office if the dressing becomes saturated inside. Visit Report/Discharge Packet Instructions: DI for Hip Replacement Stand Alone Forms: Surgery Discharge Discharge Data Primary Care Provider: Reynold Olivarez Attending Provider: Keli Chadwick
[2021-11-08] MEDS: GABAPENTIN 300 MG CAPSULE PO ×2 (08:45→15:56)
[2021-11-08] MEDS: DOCUSATE 100 MG CAPSULE PO (08:45)
[2021-11-08] MEDS: ACETAMINOPHEN 325 MG TABLET 650 MG PO ×2 (08:45→15:56)
[2021-11-08] MEDS: ASPIRIN EC 81 MG TABLET PO (08:45)
[2021-11-08 09:24] VITALS: BP 127/73; PULSE 76; RESP 20; TEMP 36.7; O2SAT 95
--- NOTE | 2021-11-08 09:32 | CM.DANOTE ---
DCP: Case received, EMR reviewed and met with patient. Introduced self and role. Was able to obtain information regarding patient's baseline activity status prior to surgery, as well as her current living situation. DCP assessment completed with information currently available. Patient is a 66 year old female who admitted yesterday morning to the care of the orthopedic team. PCP: Dr. Olivarez. Payer: [facility]. Patient came to the hospital for a surgical procedure. Patient had right hip OA. She has history of osteoarthritis of her right hip. Met with patient in her room. She is alert and oriented, pleasant. Patient worked with therapy yesterday, and will work with them again today. confirmed that she resides in [place]. She is a , but stated that she will be staying at her friends for a while, then, going back home and her daughters will be with her. At her baseline, she uses a cane and walker. P: Patient has discharge orders for today, pending working with therapy. Catia Amaral RN/Facility Engineer Discharge Planning/Care Management Advanced directive, confirm from FAMILY Start: 11/07/21 11:46 Freq: Q24H Status: Active Protocol: Document 11/07/21 11:46 AKP (Rec: 11/07/21 11:47 AKP [id number]) Advance Directive, confirm on record Time 11:46 Person contacted pt to ask family Copy received No CM Discharge Assessment Start: 11/08/21 09:30 Freq: Status: Active Protocol: Document 11/08/21 09:30 (Rec: 11/08/21 09:31 [id number]) Discharge Planning Assessment Assigned Slot Floor Person Catia Amaral RN/Facility Engineer Advance Directives? Yes Advance Directives on File No History Provided By Patient,Medical Record Prior Living Arrangements House Household Members none Type of transporation used prior to Drives own vehicle admit Independent with ADL's Yes Is patient alert and oriented? Yes DME Already Rented / Owned FWW / Walker Barriers to Discharge No Discharge Plan Home Transportation Arrangement Family Referrals Initiated None needed Whiteboard Updated in Patient Room with Yes name and ext. # of Slot Floor Person Review Status In Process Next Review Type Continued Stay Review Pre-Anesthesia Assessment Start: 11/01/21 13:48 Freq: Status: Active Protocol: Document 11/02/21 12:03 CAB (Rec: 11/02/21 12:19 [email or web address] [id number]) Pre-Anesthesia Assessment PAC Comment Pt is s/p right uni knee through surgeon's [facility] 2018. She declined scheduling phone assess, states no questions/ concerns with upcoming surgery . Reports only change is no longer taking metoprolol. No prior medical history here at . Surgeon visit 10/13/21 only source of medical history , limited chart review Patient Information Reviewed Via Chart Review Diagnostic Results BMP/CMP,CBC,EKG,Urinalysis Comment Labs/ECG @ [facility] 08/30/21, COVID screen 11/06/21 Primary Care Provider Reynold Olivarez Seen Specialist in Last 12 Months Yes Specialist Seen Orthopedist Primary Language Turkish Cardiac Nurse Required No Height 5 ft 8 in Weight 224 lb Body Mass Index (BMI) 34.0 Hx Anesthesia Reactions No Hx Family Anesthesia Reaction No Hx Malignant Hyperthermia No Hx Blood Transfusion Reaction No Anesthesia Review Requested No Pain Present Pain Reported Musculoskeletal Symptoms Abnormal Gait,Difficulty Walking,Joint Pain,Limited Range of Motion Patient is completely paralyzed or No completely immobile Prosthesis or Orthotic Device Cane CPAP/BIPAP use not prescribed Currently Taking a Beta Venancio No Anti-Coagulant Therapy No Cardiac Testing No Hx Pacemaker/ICD No Pacemaker Rep Required? No Comment Pre-op ECG 08/30/21 no significant change from prior 04/22/19 both done @ [facility] Diet Type At Home Ketogenic Urinary Catheter Present No Hx Urinary Self Catheterization No Diabetes No Patient No Lactating No Presence of External or Internal Medical Yes: Right knee Devices Marital Status Lives With spouse,none Patient Discharge Plan Description Return Home Advance Directives? No
--- NOTE | 2021-11-08 11:30 | PT.IPTN ---
Current Diagnoses Unilateral primary osteoarthritis, right hip (11/07/21) Surgery Performed Operation Date: 11/07/21 07:45 Actual Procedures p Total Hip Arthroplasty/Anterior Approach(Right) - Keli Chadwick MD Physical Therapy Treatment Note M2 PT-IP Current Condition Start: 11/07/21 15:30 Freq: NEEDED Status: Active Protocol: Document 11/08/21 10:42 SP (Rec: 11/08/21 13:45 SP [id number]) Physical Therapy Current Condition Current Condition Evaluation Date 11/07/21 Treatment Diagnosis s/p R SEAN anterior approach; difficulty in walking Onset Date 11/07/21 M3 PT-IP Subjective Start: 11/07/21 15:30 Freq: NEEDED Status: Active Protocol: Document 11/08/21 10:42 SP (Rec: 11/08/21 13:45 SP [id number]) Subjective Physical Therapy Visit Type Type Treatment Note Visit Start Time 10:42 Visit Stop Time 11:30 Total Visit Minutes 48 Notes Vitals taken during tx LUE: seated at EOB: BP 117/74 HR 80 post mobility symptomatic ( little diapharetic): BP 63/45, HR 51 reclined in chair: BP 95/66- reported feeling better but little twinging R caodaism. Number of [employer] OFFICER Visits 1 Physical Therapy Visit Comments Patient Comments pt is agreeable to do PT Patient Goals return to sister's house with her to assist needed. Therapy Pain Assessment Pain Present Pain Present Pain Reported Location right hip Intensity 5 Scale Used anterior hip with mobility, 0/ 10 at rest pre mobility Description Spasm,Tender,With Movement Pain Behaviors Facial Grimacing Pain Management Techniques Apply Cold,Distraction,Re- positioning,Timing of Activity with Medications M4 PT-IP Mobility and Gait Start: 11/07/21 15:30 Freq: NEEDED Status: Active Protocol: Document 11/08/21 10:42 SP (Rec: 11/08/21 13:45 SP [id number]) PT-Bed Mobility Assessment Supine to Sit Supine to Sit Minimal Assistance,Moderate Assistance,1 Person Assistance ,Bedrails Scooting Scooting to Edge of Bed Standby Assistance PT-Transfer Assessment Sit to and From Stand Sit to and from Stand Contact Guard Assistance,1 Person Assistance,Use of Upper Extremities Equipment Transfer Assistive Device Gait Belt,4 Wheeled Walker Orthotic/Prosthetic Devices or Brace: No Transfers Transfer Destination Chair,Toilet,Wheelchair Transfer Technique ambulated w/ FWW and 4WW Transfer Ability Level of Assist Contact Guard Assistance,1 Person Assistance,Use of Upper Extremities Comments Mobility Comments S[employer] OFFICER instructed post op exercises R hip AROM approx 80 deg knee flexion noted: AP, heel slide, GS and QS x5 reps each. supine>sit Min-Mod A for trunk righting, pt pulled from rail ( assimulate R side table at sister's house) and pulled from therapist hand. Pt scooted SBA to EOB. Sit>stand from EOB CGA, cued push from bed. Pt ambulated to bathroom w/ FWW CGA, good stabilty pivot w/ FWW, slow descent to toilet w/ grab bar on R (has counter in sister's bathroom to use), self pericare in sitting. Sit>stand from toilet use of grab bar, gait to sink CGA, washed had unsupported. Pt returned to chair CGA w/FWW , stable better verbalized positioning and hand placement self reminders. Pt progressed gait use of 4WW into hallway post educcation safety use of break mgt with good demonstration to stairs, completed 3 stairs SPC on L and R wall, partial gait back to room trailing with w/c for safety assist if needed, needed to sit after reported feeling sweaty on face, chest but not dizzy and normal coloring in face, increased UE support on 4WW, cued proper break mgt pre sit. S[employer] OFFICER wheeled pt back to room, noted little pale face, assessed vitals with decrease in BP discovered . S[employer] OFFICER called nursing for safety support if needed, S[employer] OFFICER assisted pt SPT using FWW CGA, noted little trunk sway during pivot and Min A slow descent to chair, assisted LE elevation. BACK TENDER CYLINDER arrived assessed further vitals with improvement in BP but not back to baseline started and provided CP to R anterior thigh due to report tightness and spasming. Pt reported to nurse only little sweaty after stairs and partial gait back and R caodaism twing/ muscle tension. Pt reclined in chair, had call light and all needs in reach. S[employer] OFFICER updated communication board, BP check and CGA with mobilitiy using FWW. S[employer] OFFICER notified care mgt decresae BPs and not safe at this time to go home. Set up caregiver training with sister at 230 today if safe with BP to mobilize. Nurse stated will contact Dr Chadwick with update of PT tx. Will continue to assess progress in pm. Gait Assessment Gait Gait Assistance Required: Contact Guard Assist,1 Person Assist Distance (Feet) 90 Able to Maintain Weight Bearing Status Yes During Gait Assistive Devices Assistive Device Gait Belt,Front Wheeled Walker Orthotic/Prosthetic Devices or Brace: No Gait Deviations General Gait Pattern Antalgic,Decreased Stride Length,Decreased Feet Clearance,Step-to Gait Factors Limiting Gait Function Factors Limiting Gait Function Decreased Activity Tolerance, Decreased Strength,Limited Range of Motion,Poor Balance, Poor Safety Awareness Comments Gait Comments Cued step to patterning to maintain no R hip ext during gait, cued R knee flexion and heel toe upon heel strike patterning. Improved safety using 4WW this tx and ok to use at home. Stair Climbing Assessment Evaluation Level of Assist On Stairs Minimal Assistance,1 Person Assistance Devices Stair Climbing Assistive Devices Straight Cane,Right Railing Technique/Endurance Stair Climbing Direction Ascend and Descend Stair Climbing Technique Step to Step Number of Steps Climbed 3 Stair Climbing Set # Repetitions (reps) 1 Comments Stair Climbing Comments Completed 3 stairs L SPC and R UE on wall w/hand over hand for stability first 2 steps and cues initially for positioning step ahead, CG- Min A first 2 step then CGA 3rd step PT-Balance Assessment Sitting Balance and Reactions Static Sitting Balance Ability Good Dynamic Sitting Balance Ability Good Standing Balance and Reactions Static Standing Balance Ability Fair Dynamic Standing Balance Ability Fair Device Used FWW M5 PT-IP Objective Assessments Start: 11/07/21 15:30 Freq: NEEDED Status: Active Protocol: Document 11/07/21 14:05 AB (Rec: 11/07/21 15:41 AB [id number]) Orientation Orientation/Cognition Level of Alertness Alert Orientation Name,Place,Situation Language Function Ability No Deficits Noted Safety Awareness Understands Safety Issues Memory Description Short Term Impaired Gross Range of Motion Lower Extremity ROM Assessment Within Functional Limits Strength Lower Extremity Strength Assessment Right Impaired Hip 3+/5 Knee 4-/5 Coordination Assessment Gross Coordination Gross Coordination WNL Sensation Assessment Sensation Gross Sensation WNL Muscle Tone Muscle Tone WNL Yes M6 PT-IP Treatment Start: 11/07/21 15:30 Freq: NEEDED Status: Active Protocol: Document 11/08/21 10:42 SP (Rec: 11/08/21 13:45 SP [id number]) Physical Therapy Treatment Exercises Exercises Ankle Pumps,Gluteal Sets,Quad Sets,Heel Slides Knee ROM Measurement 80 deg R knee flexion Education Education Provided Precautions,Weight Bearing Status,Post-Op Packet,Safety M7 PT-IP Assessment and Plan Start: 11/07/21 15:30 Freq: NEEDED Status: Active Protocol: Document 11/08/21 10:42 SP (Rec: 11/08/21 13:45 SP [id number]) PT Summary Assessment and Plan Potential Rehabilitation Potential Good Status of Condition at Evaluation Stable Summary Impairments Pain,ROM,Strength,Balance, Coordination,Sensation,Tone, Cognition,Bed Mobility, Transfers,Gait,Activity Tolerance Progress Towards Goals Slow Progress due to Pain,Slow Progress due to Medical Issues,Slow Progress due to Activity Tolerance Assessment Summary Pt recalled 2/2 precautions, completed bed mob Min-Mod A for trunk righting. STS and Transfer CGA with cues as needed for HP and 4WW brake mgt safety. Increased gait distance approx 90 ft w/ 4WW CGA w/c trailing, complete stair mgt Min A cues for sequencing SPC and proper patterning. Pt became symptomatic sweaty only reported upon return gait 1/2 distance w/ 4WW, orthostatic BP. MIn A SPT w/ FWW w/c>chair and elevated BLE. Improved BP . Recommending pm tx with further assessment on BP and safe mobility with sister CGT at 1430. Will continue to assess progress. Goals Bed Mobility Goal Independent Transfer Goal Independent,Front Wheeled Walker Gait Goal Independent,Front Wheel Walker Gait Distance 200 Other Goals up/down 2 steps SPC /GEOSCIENCE SPECIALIST min A Days to Meet Goals 5 Frequency of Treatment Frequency Of Treatment Twice a Day Treatment Plan Physical Therapy Treatment Plan Bed Mobility Training,Transfer Training,Gait Training, Therapeutic Exercise,Balance Retraining,Post Op Education, Discharge Planning,Hot or Cold Pack,Neuromuscular Re-ed, Coordination Retraining,Manual Therapy Other Recommendations and Next Treatment Vital check, bed mob, Focus transfers, gait w/ 4WW, CGT at 230 with sister if safe. Precautions Anterior Hip Precautions No Hip Extension,No Hip External Rotation Weight Bearing Status Weight Bearing Status Weight Bear as Tolerated Allowed Weight Bearing Amount (enter % RLE WBAT or #) (%) Recommendations To Nursing Amount of Assist Needed 1 Person Assist Discharge Recommendations PT Discharge Recommendations Home with Assistance,Home with 24/7 Assist Available, Outpatient PT Equipment Needed for Home Before safe to use 4WW at home. Discharge Transportation Needs at Discharge Private Vehicle
[2021-11-08 11:52] VITALS: BP 95/66; PULSE 63; RESP 18; O2SAT 96
[2021-11-08] MEDS: OXYCODONE IR 5 MG TABLET PO ×2 (13:25→15:56)
[2021-11-08] MEDS: SODIUM CHLORIDE 0.9% FLUSH 10 ML IV (13:28)
--- NOTE | 2021-11-08 15:27 | PT.IPTN ---
Current Diagnoses Unilateral primary osteoarthritis, right hip (11/07/21) Surgery Performed Operation Date: 11/07/21 07:45 Actual Procedures p Total Hip Arthroplasty/Anterior Approach(Right) - Keli Chadwick MD Physical Therapy Treatment Note M2 PT-IP Current Condition Start: 11/07/21 15:30 Freq: NEEDED Status: Active Protocol: Document 11/08/21 14:58 SP (Rec: 11/08/21 16:08 SP [id number]) Physical Therapy Current Condition Current Condition Evaluation Date 11/07/21 Treatment Diagnosis s/p R SEAN anterior approach; difficulty in walking Onset Date 11/07/21 M3 PT-IP Subjective Start: 11/07/21 15:30 Freq: NEEDED Status: Active Protocol: Document 11/08/21 14:58 SP (Rec: 11/08/21 16:08 SP [id number]) Subjective Physical Therapy Visit Type Type Treatment Note Visit Start Time 14:58 Visit Stop Time 15:27 Total Visit Minutes 29 Notes Vitals during tx: seated in chair: BP 120/70, HR 86 standin/68 HR 93 post bathroom mobility: 113/94 , HR 97 post gait/ stairs in hallway: BP 119/70 HR 84, SaO2 93% on RA. Nonsymptomatic. Sister completed caregiver training including donning gait belt, and assiste requried throughout tx. Sister stated post stair mgt that she has L HR can use at her home along with SPC and FWW if needed. Number of [employer] SANDER Visits 2 Physical Therapy Visit Comments Patient Comments pt is agreeable to do PT Patient Goals Return to sister's home today with her assist. Therapy Pain Assessment Pain Present Pain Present Pain Reported Location right hip Intensity 6 Scale Used anterior hip with mobility, post mobility and stated lower dose med pre PT Description With Movement Pain Behaviors Facial Grimacing Pain Management Techniques Apply Cold,Distraction,Re- positioning,Timing of Activity with Medications M4 PT-IP Mobility and Gait Start: 11/07/21 15:30 Freq: NEEDED Status: Active Protocol: Document 11/08/21 14:58 SP (Rec: 11/08/21 16:08 SP [id number]) PT-Transfer Assessment Sit to and From Stand Sit to and from Stand Standby Assistance,Contact Guard Assistance,Use of Upper Extremities Equipment Transfer Assistive Device Gait Belt,4 Wheeled Walker Orthotic/Prosthetic Devices or Brace: No Transfers Transfer Destination Chair,Toilet,Wheelchair Transfer Technique ambulated w/4WW Transfer Ability Level of Assist Standby Assistance,Contact Guard Assistance,1 Person Assistance,Use of Upper Extremities Comments Mobility Comments stable vitals throught out tx. Sit>stand with proper 4WW brake mgt, CGA, gait to bathroom 8 ft,step pivot in bathroom w 4WW and brake mgt pre sit, use grab bar slow descent to toilet CGA. Self pericare post voiding. Sit> stand SBA w/ Grab bar use. Gait to sink 10 ft w/ 4WW close SBA, cued park 4WW off side but near L hip contact for safety good brake mgt, stable balance unsupported wash hands at sink. Progressed gait to stairs, complete stairs then requested sit in w /c due to tiring, decreased strength, nonsymptomatic. Wheeled pt back to room. SPT usign FWW w/c>chair SBA. Pt was seated in chair wtih all needs in reach. Notified nursing pt is ok to return home with sister to assist her when medically cleared. Gait Assessment Gait Gait Assistance Required: Contact Guard Assist,1 Person Assist Distance (Feet) 57 Able to Maintain Weight Bearing Status Yes During Gait Assistive Devices Assistive Device Gait Belt,Front Wheeled Walker Orthotic/Prosthetic Devices or Brace: No Gait Deviations General Gait Pattern Antalgic,Decreased Stride Length,Decreased Feet Clearance,Step-to Gait Factors Limiting Gait Function Factors Limiting Gait Function Decreased Activity Tolerance, Decreased Strength,Limited Range of Motion,Poor Balance, Poor Safety Awareness Comments Gait Comments Stagger stepping and R foot clearance improved w/ use of 4WW, sister cued pt x1 for not allowing LLE pass RLE to maintain precautions. . Stair Climbing Assessment Evaluation Level of Assist On Stairs Contact Guard Assistance,1 Person Assistance Devices Stair Climbing Assistive Devices Straight Cane,Right Railing Technique/Endurance Stair Climbing Direction Ascend and Descend Stair Climbing Technique Step to Step Number of Steps Climbed 3 Stair Climbing Set # Repetitions (reps) 1 Comments Stair Climbing Comments Complete 3 stairs SPC in LUE and contact wall on R assimulate sister's home enterance. Sister reported has L HR and can use SPC on R and will be easier after stair mgt completed. CGA, step to patterning occasional verbalizes corrrect patterning for reassureance. PT-Balance Assessment Sitting Balance and Reactions Static Sitting Balance Ability Normal Dynamic Sitting Balance Ability Good Standing Balance and Reactions Static Standing Balance Ability Good Dynamic Standing Balance Ability Fair Device Used 4WW M5 PT-IP Objective Assessments Start: 11/07/21 15:30 Freq: NEEDED Status: Active Protocol: Document 11/07/21 14:05 AB (Rec: 11/07/21 15:41 AB [id number]) Orientation Orientation/Cognition Level of Alertness Alert Orientation Name,Place,Situation Language Function Ability No Deficits Noted Safety Awareness Understands Safety Issues Memory Description Short Term Impaired Gross Range of Motion Lower Extremity ROM Assessment Within Functional Limits Strength Lower Extremity Strength Assessment Right Impaired Hip 3+/5 Knee 4-/5 Coordination Assessment Gross Coordination Gross Coordination WNL Sensation Assessment Sensation Gross Sensation WNL Muscle Tone Muscle Tone WNL Yes M6 PT-IP Treatment Start: 11/07/21 15:30 Freq: NEEDED Status: Active Protocol: Document 11/08/21 14:58 SP (Rec: 11/08/21 16:08 SP [id number]) Physical Therapy Treatment Education Education Provided Precautions,Weight Bearing Status,Post-Op Packet,Safety M7 PT-IP Assessment and Plan Start: 11/07/21 15:30 Freq: NEEDED Status: Active Protocol: Document 11/08/21 14:58 SP (Rec: 11/08/21 16:08 SP [id number]) PT Summary Assessment and Plan Potential Rehabilitation Potential Good Status of Condition at Evaluation Stable Summary Impairments Pain,ROM,Strength,Balance, Coordination,Sensation,Tone, Cognition,Bed Mobility, Transfers,Gait,Activity Tolerance Progress Towards Goals Slow Progress due to Pain,Slow Progress due to Activity Tolerance Assessment Summary Pt improved, stable vitals throught tx. Sister and pt completed caregiver training. SBA-CGA throughout tx w/ FWW/ 4WW, SPC and rail for stair mgt CGA. Pt is ok to return home with sister to assist her when medically cleared. Notified nursing progress in tx. Pt is set up with outpt PT next week and good understanding post op ex performance and importance of mobiltiy in meantime for strength, circulation and safety reduct risk for DVT. Goals Bed Mobility Goal Independent Transfer Goal Independent,Front Wheeled Walker Gait Goal Independent,Front Wheel Walker Gait Distance 200 Other Goals up/down 2 steps SPC /STEREOTYPE FINISHER min A Days to Meet Goals 5 Frequency of Treatment Frequency Of Treatment Twice a Day Treatment Plan Physical Therapy Treatment Plan Bed Mobility Training,Transfer Training,Gait Training, Therapeutic Exercise,Balance Retraining,Post Op Education, Discharge Planning,Hot or Cold Pack,Neuromuscular Re-ed, Coordination Retraining,Manual Therapy Other Recommendations and Next Treatment further distance gait, post op Focus ex, bed mob. Precautions Anterior Hip Precautions No Hip Extension,No Hip External Rotation Weight Bearing Status Weight Bearing Status Weight Bear as Tolerated Allowed Weight Bearing Amount (enter % RLE WBAT or #) (%) Recommendations To Nursing Amount of Assist Needed 1 Person Assist Discharge Recommendations PT Discharge Recommendations Home with Assistance, Outpatient PT Equipment Needed for Home Before has FWW, 4WW at home Discharge Transportation Needs at Discharge Private Vehicle
--- NOTE | 2021-11-08 16:10 | PC.NURSE ---
Pt worked with PT and did well. No changes in BP. Pt reports pain is well controlled on PO rx. Pt to dc home per provider order. Reviewed dc packet, educational materials, med regimen, next dose due. Reviewed post op activity limitations, s/s post op wound infection, when to seek emergency medical treatment. Pt and sister verbalize understanding. Pt requesting PRN rx before leaving hospital. Pt and sister verbalize understanding of dc teaching. Pt able to transfer self to w/c and was escorted to POV in no distress. All belongings with pt on dc.
== END 2021-11-08 16:00 | disposition home or self-care (01) ==
LOC: OR 06:17 → AC 06:18
PROVIDERS: PCP Family Medicine; Referring Provider Orthopaedic Surgery; Visit Provider Orthopaedic Surgery
PROC: (CPT 27130; principal; 2021-11-07 07:45)
DX: M16.11 Unilateral primary osteoarthritis, right hip (principal)
CPT/HCPCS: 27130; 36415; 73502; 76000; 85014; 85018; 97116; 97161; 97530; C1776; C9290; J0171; J0690; J1100; J2250; J2274; J2405; J2704; J3010

== ENCOUNTER 2022-05-31 20:05 | Emergency (ER) | payer OTHER, SELFPAY ==
[2021-11-07 11:32] VITALS: BMI 34.0
[2022-05-31] VITALS (10 sets, daily range): BP systolic 124–182; BP diastolic 75–100; PULSE 75–93; RESP 17–24; O2SAT 93–97; BMI 32.5
--- NOTE | 2022-05-31 20:09 | DI.RAD.S_ITS ---
PROCEDURE: XR CHEST 1V INDICATIONS: chest pain TECHNIQUE: One view of the chest was acquired. COMPARISON: None. FINDINGS: Surgical changes and devices: None. Lungs and pleura: Lungs are clear. No pleural effusions or pneumothorax. Mediastinum: Mediastinal contours appear normal. Heart size is normal. Bones and chest wall: No suspicious bony lesions. Overlying soft tissues appear unremarkable. IMPRESSION: 1. No acute cardiopulmonary disease. Dictated by: Ranjith Marcus M.D. on 05/31/2022 at 21:35 Approved by: Ranjith Marcus M.D. on 05/31/2022 at 21:41
--- NOTE | 2022-05-31 20:28 | ED_ITS ---
HPI - Chest Pain General Chief Complaint: Chest Pain Stated Complaint: chest pain front to back Time Seen by Provider: 05/31/22 20:19 Source: patient Mode of arrival: Ambulatory History of Present Illness HPI narrative: 67-year-old female smoker without chronic medical history presents for evaluation of right-sided chest pain with radiation to her back for the past few days. She states that it started rather soon after receiving a chiropractic adjustment in which she was told to possibly expect some discomfort. In the aftermath she is had ongoing, if not worsening discomfort that seems to be worse when she takes a deep breath moves in certain ways or lays on her right side. She is not dizzy nor weak or lightheaded. She denies shortness of breath or cough. She denies history of blood clot, recent travel, injury or known cancer. She is had no cough with bloody sputum. She denies any lower extremity pain, swelling or weakness. Related Data Home Medications Medication Instructions Recorded Confirmed gabapentin 300 mg capsule 300 mg PO TID 11/02/21 11/07/21 Previous Rx's Medication Instructions Recorded acetaminophen 325 mg tablet 650 mg PO TID #60 tabs 11/08/21 aspirin 81 mg tablet,delayed 81 mg PO BID #60 tabs 11/08/21 release docusate sodium 100 mg capsule 100 mg PO BID #20 caps 11/08/21 oxycodone 10 mg tablet 10 mg PO Q3HR PRN Pain, Severe 11/08/21 (7-10) #60 tabs polyethylene glycol 3350 17 gram 17 gm PO DAILY PRN Constipation 11/08/21 oral powder packet #20 ea cyclobenzaprine 10 mg tablet 10 mg PO TID PRN muscle spasm #14 05/31/22 tabs hydrocodone 5 mg-acetaminophen 325 1 tab PO Q4-6H PRN pain #10 tabs 05/31/22 mg tablet ketorolac 10 mg tablet 10 mg PO Q6H PRN pain #14 tabs 05/31/22 lidocaine 5 % topical patch 1 patch topical DAILY #15 ea 05/31/22 (Lidoderm) Allergies Allergy/AdvReac Type Severity Reaction Status Date / Time No Known Drug Allergies Allergy Verified 11/07/21 06:44 Review of Systems Review of Systems Narrative: GENERAL: Denies chills, fatigue, malaise, fever, sweats. HEENT: Denies sinus pain, ear pain, sore throat, difficulty swallowing, dizziness. RESPIRATORY: Denies dyspnea, cough, wheezing, hemoptysis, sputum. CARDIOVASCULAR: See HPI GASTROINTESTINAL: Denies nausea, vomiting, abdominal pain, diarrhea, con stipation, melena. : Denies dysuria, frequency, incontinence, hematuria, urinary retention. MUSCULOSKELETAL: denies weakness, joint pain, or bony pain SKIN: Denies rash, skin lesions, or other NEUROLOGIC: Denies weakness, headache, numbness, change in speech, confusion, seizures, incoordination. PSYCHIATRIC: No concerning psychosocial issues. 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 Well-developed patient, in mild distress. HEAD: Atraumatic. Normocephalic. EYES: Pupils equal round and reactive. Extraocular motions intact. No scleral icterus. No injection or drainage. ENT: Nose without bleeding, purulent drainage. Throat without erythema, tonsillar hypertrophy or exudate. Airway patent. NECK: Trachea midline. Non tender CARDIOVASCULAR: Regular rate and rhythm without murmurs, gallops, or rubs. RESPIRATORY: Clear to auscultation. Breath sounds equal bilaterally. No wheezes, rales, or rhonchi. GASTROINTESTINAL: Abdomen soft, non-tender, nondistended. EXTREMITIES: No edema or joint tenderness. BACK: spinning machine tender just inferior to right scapula but free of any obvious external abnormalities. Patient exam notes decreased range of motion and muscle spasm NEURO: AOx3. SKIN: No rash or erythema of visible areas Initial Vital Signs Initial Vital Signs: Vital Signs Pulse Rate 78 05/31/22 20:15 Respiratory Rate 19 05/31/22 20:15 Scores HEART Score Heart Score history: Slightly Suspicious Heart Score EKG: Normal Heart Score Age: > or = 65 years old Heart Score risk factors: No known risk factors Heart Score troponin: < or = to normal limit Heart Score Total: 2 Course Orders Ordered: ED Orders 05/31/22 20:09 XR chest 1V Stat EKG-12 Lead Stat 05/31/22 20:20 CRP [C-Reactive Protein Quant] Stat Complete Blood Count AUTO DIFF Stat Comprehensive Metabolic Panel Stat D Dimer Stat Lipase Stat Magnesium Stat Partial Thromboplastin Time Stat Prothrombin Time INR Stat Troponin & CK Cardiac Panel Stat 05/31/22 21:55 CT angio chest PE protocol Stat Discontinued Medications Hydrocodone Bitart/Acetaminophen (Hydrocodone/Acet 5/325 Prepack) 1 bottle MISC SEEINSTR ONE Stop: 05/31/22 23:37 Last Admin: 05/31/22 23:56 Dose: 1 bottle Documented By: OW Cyclobenzaprine HCl (Cyclobenzaprine 10 Mg Prepack) 1 bottle MISC SEEINSTR ONE Stop: 05/31/22 23:37 Last Admin: 05/31/22 23:56 Dose: 1 bottle Documented By: CAROL Lidocaine (Lidocaine Patch 1 Each Adh..Patch) 1 each TOP NOW ONE Stop: 05/31/22 23:37 Last Admin: 05/31/22 23:56 Dose: Not Given Documented By: CAROL Vital Signs Vital signs: Vital Signs - 8 hr 05/31/22 20:18 05/31/22 20:15 05/31/22 20:30 Pulse Rate 93 H 78 86 Respiratory Rate 18 19 24 Blood Pressure 182/100 H Pulse Oximetry 97 96 Oxygen Delivery Method Room Air Room Air 05/31/22 20:31 05/31/22 20:31 05/31/22 21:00 Pulse Rate 86 Respiratory Rate 24 Blood Pressure 129/83 126/75 Pulse Oximetry 95 Oxygen Delivery Method Room Air 05/31/22 21:00 05/31/22 21:30 05/31/22 21:30 Pulse Rate 79 80 Respiratory Rate 23 22 Blood Pressure 124/75 Pulse Oximetry 94 93 Oxygen Delivery Method Room Air Room Air 05/31/22 22:00 05/31/22 22:01 05/31/22 22:01 Pulse Rate 76 75 Respiratory Rate 17 Blood Pressure 138/98 H Pulse Oximetry 97 95 Oxygen Delivery Method Room Air Room Air 05/31/22 22:30 05/31/22 23:40 Pulse Rate 75 76 Respiratory Rate 22 24 Blood Pressure 145/85 H Pulse Oximetry 96 95 Oxygen Delivery Method Room Air MDM - Chest Pain Lab Data Result diagrams: 05/31/22 20:20 05/31/22 20:20 Labs: Lab Results 05/31/22 05/31/22 05/31/22 Range/Units 20:20 20:20 20:20 WBC 9.7 (4.5-11.0) X10^3/uL RBC 5.13 (4.0-5.2) X10^6/uL Hgb 13.9 (12.0-16.0) g/dL Hct 42.5 (36-46) % MCV 82.9 (80-100) fL MCH 27.0 (26-34) PG MCHC 32.6 (30-36) % RDW 14.2 (11.6-14.8) % Plt Count 296 (150-400) X10^3/uL Neut % (Auto) 52.7 (50-75) % Lymph % (Auto) 33.6 (25-40) % Sioux % (Auto) 9.4 (3-14) % Eos % (Auto) 3.7 (2-4) % Baso % (Auto) 0.6 (0-2) % Neut # (Auto) 5100 (9042-7420) /uL Lymph # (Auto) 3200 (6912-0221) /uL Sioux # (Auto) 900 (0-900) /uL Eos # (Auto) 400 (0-450) /uL Baso # (Auto) 100 (0-100) /uL PT 12.6 (10.1-12.7) SECONDS INR 1.1 (0.9-1.3) APTT 34 (26-36) SECONDS D-Dimer (<500) ng/ml Sodium 138 (137-145) mmol/L Potassium 3.7 (3.4-5.1) mmol/L Chloride 104 (98-107) mmol/L Carbon Dioxide 23 (22-32) mmol/L BUN 22 H (7-17) mg/dL Creatinine 0.51 L (0.52-1.04) mg/dL Estimated GFR > 60 (>60) mL/min BUN/Creatinine Ratio 43.1 H (6-22) Glucose 131 H (80-110) mg/dL Calcium 9.2 (8.4-10.2) mg/dL Magnesium 2.0 (1.6-2.3) mg/dL Total Bilirubin 1.1 (0.2-1.3) mg/dL AST 30 (14-36) IU/L ALT 25 (<35) IU/L Alkaline Phosphatase 100 (38-126) U/L Total Creatine Kinase 48 (30-135) U/L CK-MB (CK-2) TNP CK-MB (CK-2) Rel Index TNP Troponin I < 0.012 (0.01-0.034) ng/mL C-Reactive Protein (<1.0) mg/dL Total Protein 8.3 H (6.3-8.2) g/dL Albumin 4.4 (3.5-5.0) g/dL Globulin 3.9 (1.7-4.1) g/dL Albumin/Globulin Ratio 1.1 (1.0-2.8) Lipase 159 (23-300) U/L 05/31/22 05/31/22 Range/Units 20:20 20:20 WBC (4.5-11.0) X10^3/uL RBC (4.0-5.2) X10^6/uL Hgb (12.0-16.0) g/dL Hct (36-46) % MCV (80-100) fL MCH (26-34) PG MCHC (30-36) % RDW (11.6-14.8) % Plt Count (150-400) X10^3/uL Neut % (Auto) (50-75) % Lymph % (Auto) (25-40) % Sioux % (Auto) (3-14) % Eos % (Auto) (2-4) % Baso % (Auto) (0-2) % Neut # (Auto) (0898-1693) /uL Lymph # (Auto) (7756-1144) /uL Sioux # (Auto) (0-900) /uL Eos # (Auto) (0-450) /uL Baso # (Auto) (0-100) /uL PT (10.1-12.7) SECONDS INR (0.9-1.3) APTT (26-36) SECONDS D-Dimer 1093 H (<500) ng/ml Sodium (137-145) mmol/L Potassium (3.4-5.1) mmol/L Chloride (98-107) mmol/L Carbon Dioxide (22-32) mmol/L BUN (7-17) mg/dL Creatinine (0.52-1.04) mg/dL Estimated GFR (>60) mL/min BUN/Creatinine Ratio (6-22) Glucose (80-110) mg/dL Calcium (8.4-10.2) mg/dL Magnesium (1.6-2.3) mg/dL Total Bilirubin (0.2-1.3) mg/dL AST (14-36) IU/L ALT (<35) IU/L Alkaline Phosphatase (38-126) U/L Total Creatine Kinase (30-135) U/L CK-MB (CK-2) CK-MB (CK-2) Rel Index Troponin I (0.01-0.034) ng/mL C-Reactive Protein 0.6 (<1.0) mg/dL Total Protein (6.3-8.2) g/dL Albumin (3.5-5.0) g/dL Globulin (1.7-4.1) g/dL Albumin/Globulin Ratio (1.0-2.8) Lipase (23-300) U/L Imaging Data CT scan - chest: Radiologist's Impression: [address] [id number] ReportSigned Patient: Kike Hitchcock EMR#: [id number]: 12/23/1992Acct:[id number]/Sex: 29 / FDate of Service: 05/31/22Loc: EDAccession Number: [id number] Procedure: XR wrist RT min 3V Ordering Provider: Gary Greene D.O. PROCEDURE: XR WRIST RT MIN 3V INDICATIONS: twisted it. TECHNIQUE: 4 views of the wrist were acquired. COMPARISON: None. FINDINGS: Bones: No fractures or dislocations. No suspicious bony lesions. Scaphoid view: The scaphoid appears intact. Soft tissues: No suspicious soft tissue calcifications. IMPRESSION: 1. No fracture or dislocation. Dictated by: Ranjith Marcus M.D. on 05/31/2022 at 21:34 Approved by: Ranjith Marcus M.D. on 05/31/2022 at 21:35 [facility] Narrative Medical decision making narrative: Patient with a sharp and stabbing reproducible right posterior and lateral chest and rib pain in the aftermath of an adjustment by her provider. Multiple di agnoses considered including musculoskeletal versus spasm versus cardiac ischemia versus pulmonary embolism. Labs are largely reassuring and EKG is nonischemic. Her D-dimer is significantly elevated which was ordered when her discomfort was not immediately reproducible laterally as might be expected with a isolated musculoskeletal issue. CT angiogram ordered given D-dimer over 1000. Thankfully this was unremarkable. Multiple causes of chest pain considered including [place], PE, pneumothorax, pneumonia, aortic dissection, and pleurisy. Patient reports no radiation, no diaphoresis, no provocation with exertion, and no vomiting. Return precautions discussed and questions answered to her appar ent satisfaction Discharge Plan Departure Patient Disposition: Home Clinical Impression: Atypical chest pain Instructions: DI for Atypical Chest Pain Activity Restrictions/Additional Instructions: *You have been diagnosed with [right-sided chest and upper back pain. As we discussed your history and physical exam are reassuring and there is no evidence of heart attack, blood clot] *What to do: *Please continue to take your regular medications as directed. [ x] New medication prescriptions sent to your pharmacy: [ [facility]] [ ] New medication written as a paper prescription [ ] No new medications given *Please follow up with your primary care provider in 2-3 days, call for an appointment. Let them know you were seen in the Emergency Department and that we ask that you be seen in follow up. We will electronically transmit a record of today's note if your PCP is in our system *If you do not have a primary care provider please contact the [facility] Resource line at [phone]. They will ask some questions about your medical history and help get you set up with a doctor in the community. *Return to Emergency Department if you should have any new, worsening or concerning symptoms, such as [fever greater than 101 F, shaking chills, worsening pain, persistent vomiting or other bothersome symptoms You have been prescribed a short course of narcotic medications. These are potentially dangerous and addictive medications that should be used carefully. While on these medications you cannot drive or operate heavy machinery. Addit ionally, you cannot sign legal documents or perform any duties such as this. Many people get constipated on narcotic medications so it would be advisable to discuss stool softeners with the pharmacist when you picker and sorter load and unload your prescription. Please understand that we cannot provide further refills of narcotics or controlled substances through the ED and your pain management will need to be through your Primary Care Provider] Prescriptions: New ketorolac 10 mg tablet 10 mg PO Q6H PRN (Reason: pain) Qty: 14 0RF cyclobenzaprine 10 mg tablet 10 mg PO TID PRN (Reason: muscle spasm) Qty: 14 0RF hydrocodone-acetaminophen 5-325 mg tablet 1 tab PO Q4-6H PRN (Reason: pain) Qty: 10 0RF lidocaine [Lidoderm] 5 % adhesive patch,medicated 1 patch TOP DAILY Qty: 15 0RF Rx Instructions: leave on most painful area for 12 hrs No Action gabapentin 300 mg Capsule 300 mg PO TID acetaminophen 325 mg Tablet 650 mg PO TID Qty: 60 0RF polyethylene glycol 3350 17 gram Powder In Packet 17 gm PO DAILY PRN (Reason: Constipation) Qty: 20 0RF aspirin 81 mg Tablet,Delayed Release (Dr/Ec) 81 mg PO BID Qty: 60 0RF docusate sodium 100 mg Capsule 100 mg PO BID Qty: 20 0RF oxycodone 10 mg Tablet 10 mg PO Q3HR PRN (Reason: Pain, Severe (7-10)) Qty: 60 0RF Referrals: Reynold Olivarez MD [Primary Care Provider] - Visit Report Forms: Patient Portal/API
[2022-05-31 20:31] LABS: Add Manual Diff / Slide Review NO; Basophils Absolute Auto 100 /uL (0-100); Basophils Percent Auto 0.6 % (0-2); Eosinophils Absolute Auto 400 /uL (0-450); Eosinophils Percent Auto 3.7 % (2-4); Hematocrit 42.5 % (36-46); Hemoglobin 13.9 g/dL (12.0-16.0); Lymphocytes Absolute Auto 3200 /uL (1100-4500); Lymphocytes Percent Auto 33.6 % (25-40); Mean Corpuscular HGB Conc 32.6 % (30-36); Mean Corpuscular Volume 82.9 fL (80-100); Monocytes Absolute Auto 900 /uL (0-900); Monocytes Percent Auto 9.4 % (3-14); Neutrophils Absolute Auto 5100 /uL (1500-7000); Neutrophils Percent Auto 52.7 % (50-75); Platelet Count 296 X10^3/uL (150-400); Red Blood Cell Count 5.13 X10^6/uL (4.0-5.2); Red Cell Distribution Width 14.2 % (11.6-14.8); White Blood Cell Count 9.7 X10^3/uL (4.5-11.0)
[2022-05-31 20:40] LABS: INR 1.1 (0.9-1.3); Prothrombin Time 12.6 SECONDS (10.1-12.7)
[2022-05-31 20:43] LABS: PTT Partial Thromboplastin Tim 34 SECONDS (26-36)
[2022-05-31 20:59] LABS: Alanine Aminotransferase 25 IU/L (<35); Albumin 4.4 g/dL (3.5-5.0); Albumin Globulin Ratio 1.1 (1.0-2.8); Alkaline Phosphatase 100 U/L (38-126); Aspartate Aminotransferase 30 IU/L (14-36); BUN Creatinine Ratio 43.1 (6-22); Bilirubin Total 1.1 mg/dL (0.2-1.3); Blood Urea Nitrogen 22 mg/dL (7-17); Calcium 9.2 mg/dL (8.4-10.2); Carbon Dioxide 23 mmol/L (22-32); Chloride 104 mmol/L (98-107); Creatine Kinase 48 U/L (30-135); Estimated Glomerular Filt Rate > 60 mL/min (>60); Globulin 3.9 g/dL (1.7-4.1); Glucose 131 mg/dL (80-110); Lipase 159 U/L (23-300); Potassium 3.7 mmol/L (3.4-5.1); Sodium 138 mmol/L (137-145); Total Protein 8.3 g/dL (6.3-8.2)
[2022-05-31 21:01] LABS: C-Reactive Protein Quant 0.6 mg/dL (<1.0)
[2022-05-31 21:02] LABS: D Dimer 1093 ng/ml (<500)
[2022-05-31 21:10] LABS: Troponin I < 0.012 ng/mL (0.01-0.034)
[2022-05-31 21:18] LABS: HEMOLYSIS 59 (0-50)
--- NOTE | 2022-05-31 21:55 | DI.CT.S_ITS ---
PROCEDURE: CT ANGIO CHEST PE PROTOCOL INDICATIONS: right sided chest pain, radiation to back, critical Dimer TECHNIQUE: After the administration of intravenous contrast, 2 mm thick sections acquired from the pulmonary apices to the posterior costophrenic angles. 3-dimensional maximum intensity projection (MIP) coronal and sagittal reformats were then acquired through the thorax. For radiation dose reduction, the following was used: automated exposure control, adjustment of mA and/or kV according to patient size. COMPARISON: None. FINDINGS: Image quality: Excellent. Pulmonary arteries: Pulmonary arteries are normal in size, and demonstrate no intraluminal filling defects to suggest central pulmonary embolism. Lower Neck: No lymphadenopathy by size criteria. Thyroid: Visualized thyroid demonstrates no discrete nodules. Axillae: No lymphadenopathy by size criteria. Chest Wall: Unremarkable. Bones: Visualized osseous structures demonstrate no suspicious lesions. Lungs and Airways: No acute consolidation. No suspicious pulmonary nodules. The trachea and central airways are patent. Pleura: No pneumothorax or pleural effusions. Heart: Heart size is normal. No pericardial effusion. Thoracic Vessels: The thoracic aorta is normal in size. Mediastinum and Jennifer: No lymphadenopathy by size criteria. Esophagus: No wall thickening. No hiatal hernia. Abdomen: Visualized upper abdomen demonstrates heterogeneous hypoattenuation of the liver consistent with fatty infiltration. IMPRESSION: 1. No evidence of pulmonary embolism. 2. No acute airspace consolidation. Dictated by: Ranjith Marcus M.D. on 05/31/2022 at 23:26 Approved by: Ranjith Marcus M.D. on 05/31/2022 at 23:28
[2022-05-31] MEDS: CYCLOBENZAPRINE 10 MG PREPACK 1 BOTTLE MISC (23:56)
[2022-05-31] MEDS: HYDROCODONE/ACET 5/325 PREPACK 1 BOTTLE MISC (23:56)
== END 2022-06-01 00:06 | disposition home or self-care (01) ==
PROVIDERS: Emergency Provider Emergency Medicine; PCP Family Medicine
DX: R07.89 Other chest pain (principal)
CPT/HCPCS: 36415; 71045; 71275; 80053; 82550; 83690; 83735; 84484; 85025; 85379; 85610; 85730; 86140; 93005; 93010; 99284; Q9967

== ENCOUNTER 2022-12-13 12:52 | Emergency (ER) | payer OTHER, SELFPAY ==
[2021-11-07 11:32] VITALS: BMI 34.0
[2022-12-13 13:02] VITALS: BP 155/85; PULSE 74; RESP 18; TEMP 36.6; O2SAT 97; BMI 33.3
--- NOTE | 2022-12-13 13:09 | DI.RAD.S_ITS ---
PROCEDURE: XR CLAVICLE LT INDICATIONS: fall, pain TECHNIQUE: 2 views of the clavicle were acquired. COMPARISON: None. FINDINGS: Bones: There is a displaced fracture through the distal aspect of the left clavicular diaphysis. The acromioclavicular joint is intact. Soft tissues: No suspicious soft tissue calcifications. IMPRESSION: Displaced clavicular fracture. Dictated by: Mila Pena M.D. on 12/13/2022 at 13:59 Approved by: Mila Pena M.D. on 12/13/2022 at 13:59
--- NOTE | 2022-12-13 13:10 | DI.RAD.S_ITS ---
PROCEDURE: XR KNEE RT 3V INDICATIONS: fall, pain TECHNIQUE: 3 views of the knee were acquired. COMPARISON: None. FINDINGS: Bones: No fractures or dislocations. Unicondylar lateral right arthroplasty is intact. No suspicious bony lesions. Soft tissues: No joint effusion. No suspicious soft tissue calcifications. IMPRESSION: No acute radiographic findings. If pain persists, followup imaging in 5-7 days is recommended to exclude occult fracture. Dictated by: Mila Pena M.D. on 12/13/2022 at 14:15 Approved by: Mila Pena M.D. on 12/13/2022 at 14:16
--- NOTE | 2022-12-13 14:15 | ED_ITS ---
HPI - Trauma <Debbie Mann, [facility] - Last Filed: 12/13/22 14:58> General Chief Complaint: Extremity Injury, Upper Stated Complaint: Fell last week, inj knee, shoulder and head. Time Seen by Provider: 12/13/22 13:53 Source: patient Mode of arrival: Ambulatory History of Present Illness HPI narrative: This is a 67-year-old female who had a injury yesterday where she stumbled forward impacting a propane tank with her left shoulder and fell down onto her right knee which has a history of right total arthroplasty. She states that she has had pain and swelling to her right knee but her left proximal clavicle has been painful. She denies shortness of breath, wheezing, states that she is had a massage and is doing okay, is able to move her arm and move her leg but pain is worse with bearing weight and with getting up. She endorses swelling to the right knee. She drove here today. States that she has a cane at home for ambulation. Denies loss of consciousness, denies headache or head injury. States that she had a hard impact but has been doing well afterwards. She is not anticoagulated. Related Data Home Medications Medication Instructions Recorded Confirmed gabapentin 300 mg capsule 300 mg PO TID 11/02/21 11/07/21 Previous Rx's Medication Instructions Recorded acetaminophen 325 mg tablet 650 mg PO TID #60 tabs 11/08/21 aspirin 81 mg tablet,delayed 81 mg PO BID #60 tabs 11/08/21 release docusate sodium 100 mg capsule 100 mg PO BID #20 caps 11/08/21 oxycodone 10 mg tablet 10 mg PO Q3HR PRN Pain, Severe 11/08/21 (7-10) #60 tabs polyethylene glycol 3350 17 gram 17 gm PO DAILY PRN Constipation 11/08/21 oral powder packet #20 ea cyclobenzaprine 10 mg tablet 10 mg PO TID PRN muscle spasm #14 05/31/22 tabs hydrocodone 5 mg-acetaminophen 325 1 tab PO Q4-6H PRN pain #10 tabs 05/31/22 mg tablet ketorolac 10 mg tablet 10 mg PO Q6H PRN pain #14 tabs 05/31/22 lidocaine 5 % topical patch 1 patch topical DAILY #15 ea 05/31/22 (Lidoderm) hydrocodone 5 mg-acetaminophen 325 1 tab PO TID PRN pain #14 tabs 12/13/22 mg tablet lidocaine 5 % topical patch 1 patch topical DAILY #15 ea 12/13/22 (Lidoderm) naproxen 375 mg tablet 375 mg PO BID PRN pain #20 tabs 12/13/22 Allergies Allergy/AdvReac Type Severity Reaction Status Date / Time No Known Drug Allergies Allergy Verified 12/13/22 13:08 Review of Systems <MORGAN Howell - Last Filed: 12/13/22 14:58> Review of Systems ROS Unobtainable: All systems reviewed & are unremarkable except as noted in HPI and below Patient History <MORGAN Howell - Last Filed: 12/13/22 14:58> Medical History Depression No significant past medical history Osteoarthritis Surgical History History of dilation of urethra History of surgery 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) Social History household members: none Smoking Status: Former smoker alcohol intake: current Smoking Status: Former smoker alcohol intake frequency: holidays/special occasions only Substance Use Type: marijuana Exam <MORGAN Howell - Last Filed: 12/13/22 14:58> Narrative Exam Narrative: Reviewed vitals signs and nursing notes. General: Pleasant, sitting upright, in no acute distress, well groomed, afebrile MSK: moves all extremities, no weakness, normal tone, ambulatory with right leg pain while bearing weight, palpable joint effusion to the right knee, left proximal clavicle with a bump concerning for displaced fracture, right knee suprapatellar effusion, no tenderness over MCL or LCL, normal range of motion limited only due to pain, neurovascularly intact Breath sounds clear throughout all heck, no increased work of breathing, hypoxia or other. Skin: brisk capillary refill, without rash or wound Neuro: clear speech and normal cognition, A&O x3, GCS 15, no focal motor or sensation deficits Initial Vital Signs Initial Vital Signs: Vital Signs Temperature 97.8 F 12/13/22 13:02 Pulse Rate 74 12/13/22 13:02 Respiratory Rate 18 12/13/22 13:02 Blood Pressure 155/85 H 12/13/22 13:02 Pulse Oximetry 97 12/13/22 13:02 Oxygen Delivery Method Room Air 12/13/22 13:02 <Gary Greene DO - Last Filed: 12/13/22 22:19> Initial Vital Signs Initial Vital Signs: Vital Signs Temperature 97.8 F 12/13/22 13:02 Pulse Rate 74 12/13/22 13:02 Respiratory Rate 18 12/13/22 13:02 Blood Pressure 155/85 H 12/13/22 13:02 Pulse Oximetry 97 12/13/22 13:02 Oxygen Delivery Method Room Air 12/13/22 13:02 Course <MORGAN Howell - Last Filed: 12/13/22 14:58> Orders Ordered: Discontinued Medications Ketorolac Tromethamine (Ketorolac 30 Mg/Ml Vial) 15 mg IM NOW ONE Stop: 12/13/22 14:11 Last Admin: 12/13/22 14:25 Dose: 15 mg Documented By: RLS Lidocaine (Lidocaine Patch 1 Each Adh..Patch) 1 each TOP NOW ONE Stop: 12/13/22 14:11 Last Admin: 12/13/22 14:23 Dose: 1 each Documented By: SADIQ Oxycodone/Acetaminophen (Oxycodone/Acetaminophen 5/325 Tablet) 2 tab PO NOW ONE Stop: 12/13/22 14:11 Last Admin: 12/13/22 14:22 Dose: Not Given Documented By: RLS Vital Signs Vital signs: Vital Signs - 8 hr 12/13/22 13:02 Temperature 97.8 F Pulse Rate 74 Respiratory Rate 18 Blood Pressure 155/85 H Pulse Oximetry 97 Oxygen Delivery Method Room Air <Gary Greene DO - Last Filed: 12/13/22 22:19> Orders Ordered: Discontinued Medications Ketorolac Tromethamine (Ketorolac 30 Mg/Ml Vial) 15 mg IM NOW ONE Stop: 12/13/22 14:11 Last Admin: 12/13/22 14:25 Dose: 15 mg Documented By: RLS Lidocaine (Lidocaine Patch 1 Each Adh..Patch) 1 each TOP NOW ONE Stop: 12/13/22 14:11 Last Admin: 12/13/22 14:23 Dose: 1 each Documented By: SADIQ Oxycodone/Acetaminophen (Oxycodone/Acetaminophen 5/325 Tablet) 2 tab PO NOW ONE Stop: 12/13/22 14:11 Last Admin: 12/13/22 14:22 Dose: Not Given Documented By: SADIQ Vital Signs Vital signs: Vital Signs - 8 hr 12/13/22 13:02 Temperature 97.8 F Pulse Rate 74 Respiratory Rate 18 Blood Pressure 155/85 H Pulse Oximetry 97 Oxygen Delivery Method Room Air MDM - Trauma <Debbie Andres Johnathan, [facility] - Last Filed: 12/13/22 14:58> Imaging Data Extremity x-ray #1: Radiologist's Impression: PROCEDURE:? XR KNEE RT 3V ? INDICATIONS:? fall, pain ? TECHNIQUE:? 3 views of the knee were acquired.? ? COMPARISON:? None. ? FINDINGS:? ? Bones:? No fractures or dislocations.? Unicondylar lateral right arthroplasty is intact.? No suspicious bony lesions.? ? Soft tissues:? No joint effusion.? No suspicious soft tissue calcifications.? ? ? IMPRESSION:? No acute radiographic findings. If pain persists, followup imaging in 5-7 days is recommended to exclude occult fracture. ? Dictated by: Mila Pena M.D. on 12/13/2022 at 14:15 ? ? Approved by: Mila Pena M.D. on 12/13/2022 at 14:16 ? Chest x-ray: Radiologist's Impression: PROCEDURE:? XR CLAVICLE LT ? INDICATIONS:? fall, pain ? TECHNIQUE:? 2 views of the clavicle were acquired.? ? COMPARISON:? None. ? FINDINGS:? ? Bones:? There is a displaced fracture through the distal aspect of the left clavicular diaphysis.? The acromioclavicular joint is intact. ? Soft tissues:? No suspicious soft tissue calcifications.? ? IMPRESSION:? Displaced clavicular fracture. ? ? Dictated by: Mila Pena M.D. on 12/13/2022 at 13:59 ? ? Approved by: Mila Pena M.D. on 12/13/2022 at 13:59 ? [facility] Narrative Medical decision making narrative: Chief Complaint: Left clavicle and right knee injury yesterday with fall Independent historian: Patient Multiple etiologies for patient's symptoms considered including, but not limited to: Left clavicle fracture, other rib fracture, rotator cuff injury I have independently reviewed the patient's vital signs and nursing notes as well as prior records if available. My interpretation of imaging: Left clavicle fracture without on clavicle x-ray, right knee x-ray without arthroplasty a fracture or failure, no visible associated fracture, joint effusion Course of care: Patient was fitted in a sling for displaced left clavicle fracture, right knee x-ray is without abnormality, patient was fitted in a sling and then tolerated that well. Her pain is well under control. She was given a lidocaine patch and Toradol. She is given a prescription of hydrocodone at home, understands to follow-up with [facility] and was given contact information. Social considerations that may affect disposition: none Questions are addressed and there is agreement with the plan and for follow-up. I consulted with the ED attending physician Dr. Greene as needed for higher level of care considerations and they were available for discussion and recommendations regarding plan of care and diagnostic testing. Patient is appropriate for outpatient management. Discharge Plan Departure Patient Disposition: Home Clinical Impression: Clavicle fracture, shaft Qualifiers: Encounter type: initial encounter Fracture type: closed Fracture alignment: displaced Laterality: left Qualified Code(s): S42.022A - Displaced fracture of shaft of left clavicle, initial encounter for closed fracture Right knee injury Qualifiers: Encounter type: initial encounter Qualified Code(s): S89.91XA - Unspecified injury of right lower leg, initial encounter Fall Qualifiers: Encounter type: initial encounter Qualified Code(s): W19.XXXA - Unspecified fall, initial encounter Instructions: Clavicle Fracture, DI for Knee Pain Activity Restrictions/Additional Instructions: *You have been diagnosed with a left-sided clavicle fracture. I am sorry for your pain, the right knee does not show any fluid within the joint, does not show any fracture associated with the hardware and no hardware failures. This will probably heal in the next couple of weeks however your left clavicle will take at least 6 weeks. States use the sling, schedule follow-up with orthopedic group at [facility], follow-up with your primary care provider as needed, you something topical for your pain as this can offer pretty good pain relief. Use hydrocodone as needed for severe pain or difficulty falling asleep. I hope that you feel better soon, it was nice to meet you, ice your knee frequently and try to avoid extra activity for a few days. *What to do: *Please continue to take your regular medications as directed. [x ] New medication prescriptions sent to your pharmacy: [[facility]] [ ] New medication written as a paper prescription [ ] No new medications given *Please call and schedule follow up with your primary care provider in 2-3 days, at least for an update. Let them know you were seen in the Emergency Department for the above problem. We will electronically transmit a record of today's note if your PCP or specialist is in our system. *If you do not have a primary care provider please contact [phone] to establish care with one of the [facility] primary care providers. *Return to the Emergency Department for worsening symptoms, inability to keep liquids down, fever greater than 101F, chills, or other concerning symptom. Prescriptions: New hydrocodone-acetaminophen 5-325 mg tablet 1 tab PO TID PRN (Reason: pain) Qty: 14 0RF lidocaine [Lidoderm] 5 % adhesive patch,medicated 1 patch topical DAILY Qty: 15 0RF Rx Instructions: leave on most painful area for up to 12 hrs naproxen 375 mg tablet 375 mg PO BID PRN (Reason: pain) Qty: 20 0RF No Action gabapentin 300 mg Capsule 300 mg PO TID acetaminophen 325 mg Tablet 650 mg PO TID Qty: 60 0RF polyethylene glycol 3350 17 gram Powder In Packet 17 gm PO DAILY PRN (Reason: Constipation) Qty: 20 0RF aspirin 81 mg Tablet,Delayed Release (Dr/Ec) 81 mg PO BID Qty: 60 0RF docusate sodium 100 mg Capsule 100 mg PO BID Qty: 20 0RF oxycodone 10 mg Tablet 10 mg PO Q3HR PRN (Reason: Pain, Severe (7-10)) Qty: 60 0RF ketorolac 10 mg tablet 10 mg PO Q6H PRN (Reason: pain) Qty: 14 0RF cyclobenzaprine 10 mg tablet 10 mg PO TID PRN (Reason: muscle spasm) Qty: 14 0RF hydrocodone-acetaminophen 5-325 mg tablet 1 tab PO Q4-6H PRN (Reason: pain) Qty: 10 0RF lidocaine [Lidoderm] 5 % adhesive patch,medicated 1 patch TOP DAILY Qty: 15 0RF Rx Instructions: leave on most painful area for 12 hrs Referrals: [facility] [Provider Group] Reynold Olivarez MD [Primary Care Provider] - Stand Alone Forms: Patient Portal/API <Gary Greene DO - Last Filed: 12/13/22 22:19> Cosign ED Attending Cosignature Attestation: I was immediately available in the department for consultation. Documentation has been reviewed. I agree with assessment and plan.
[2022-12-13] MEDS: LIDOCAINE PATCH 1 EACH ADH..PATCH TOP (14:23)
[2022-12-13] MEDS: KETOROLAC 30 MG/ML VIAL 15 MG IM (14:25)
== END 2022-12-13 14:46 | disposition home or self-care (01) ==
PROVIDERS: Emergency Provider Nurse Practitioner Critical Care Medicine; PCP Family Medicine
DX: S42.022A Displaced fracture of shaft of left clavicle, initial encounter for closed fracture (principal); S89.91XA Unspecified injury of right lower leg, initial encounter; W01.198A Fall on same level from slipping, tripping and stumbling with subsequent striking against other object, initial encounter
CPT/HCPCS: 73000; 73562; 96372; 99283; 99284; J1885

== ENCOUNTER → 2023-01-16 15:51 | Outpatient (CLI) | payer OTHER, SELFPAY ==
[2021-11-07 11:32] VITALS: BMI 34.0
[2023-01-16 15:54] LABS: Appearance Urine UA CLEAR; Bilirubin Urine UA NEGATIVE (NEGATIVE); Color Urine UA YELLOW; Glucose Urine UA NEGATIVE (Negative); Ketones Urine UA NEGATIVE (NEGATIVE); Leukocyte Esterase Urine UA NEGATIVE (NEGATIVE); Nitrite Urine UA NEGATIVE (Negative); Occult Blood Urine UA 1+ (Negative); Protein Urine UA NEGATIVE (Negative); Urobilinogen Urine UA 0.2 E.U./dL (0.2)
[2023-01-16 15:55] LABS: pH Urine UA 5.5 (4.5-8.0)
[2023-01-16 16:09] LABS: Bacteria Urine Few (2-10); Culture Indicated Urine Specimen Cultured; RBC Urine 10-30/HPF (0-5/HPF); WBC Urine 5-10/HPF (0-5/HPF)
== END ==
PROVIDERS: PCP Family Medicine; Visit Provider Specialist
DX: N95.2 Postmenopausal atrophic vaginitis (principal); N39.46 Mixed incontinence; Z87.440 Personal history of urinary (tract) infections
CPT/HCPCS: 51798; 81001; 81002; 87077; 87086; 87186; 99215

== ENCOUNTER 2023-11-05 12:27 | Emergency (ER) | payer OTHER, SELFPAY ==
[2021-11-07 11:32] VITALS: BMI 34.0
[2023-11-05] VITALS (12 sets, daily range): BP systolic 139–175; BP diastolic 72–103; PULSE 62–71; RESP 15–25; TEMP 36.9; O2SAT 93–97; BMI 34.0
--- NOTE | 2023-11-05 13:10 | DI.CT.S_ITS ---
PROCEDURE: CT HEAD/BRAIN WO CON INDICATIONS: headache TECHNIQUE: Noncontrast 4.5 mm thick angled axial sections acquired from the foramen magnum to the vertex, with coronal and sagittal reformats. For radiation dose reduction, the following was used: automated exposure control, adjustment of mA and/or kV according to patient size. COMPARISON: None. FINDINGS: Image quality: Diagnostic. CSF spaces: Basal cisterns are patent. No extra-axial fluid collections. The ventricles are symmetric in size and shape. Brain: No intracranial bleeds or masses. There is cerebral volume loss for age, with resultant ventricular and sulcal prominence. There are periventricular and deep white matter chronic small vessel ischemic changes. There is intracranial internal carotid artery atherosclerosis. Skull and face: Calvarium and visualized facial bones appear intact, without suspicious lesions. Sinuses: Visualized sinuses and mastoids are clear. IMPRESSION: No acute intracranial pathology. Dictated by: Srinivasan Neely M.D. on 11/05/2023 at 14:01 Approved by: Srinivasan Neely M.D. on 11/05/2023 at 14:04
[2023-11-05] MEDS: ACETAMINOPHEN 325 MG TABLET 975 MG PO (13:24)
[2023-11-05] MEDS: diphenhydrAMINE 50 MG/ML VIAL 25 MG IV (13:24)
[2023-11-05] MEDS: METOCLOPRAMIDE 10 MG/2 ML INJ IV (13:24)
[2023-11-05] MEDS: DEXAMETHASONE 10 MG/ML VIAL IV (13:24)
--- NOTE | 2023-11-05 13:32 | ED_ITS ---
HPI - General Adult <Chnadler Bassett PA-C - Last Filed: 11/05/23 16:23> General Chief complaint: Hypertension Stated complaint: HBP Time Seen by Provider: 11/05/23 12:41 Source: patient Mode of arrival: Ambulatory History of Present Illness HPI narrative: 68-year-old female presents to the ED with 2 weeks of headache, elevated blood pressure. Patient states she does not normally get headaches. Patient describes the headache as dull pressure. Patient states that her headache has waxed and waned over the last 2 weeks, with moderate response to ibuprofen. Patient's current headache is 2/10. Patient also states that her blood pressure was elevated today with systolic 212. Patient states that she has been self medicating with metoprolol for the last week for high blood pressure. Patient states that she has had a lot of stress recently over the past few weeks with her friend dying of cancer. And states that she had noted really high systolic blood pressures in the 200s, which led her to self medicate with metoprolol which she obtained from a friend. Patient states that the metoprolol has been successfully keeping her systolic in the 130s 140s. Patient spent the last week in [facility] on vacation, states that she has had irregular eating and drinking schedules. Patient had consume some alcohol as well. Patient states that she got back last night, this morning again had worsening headache and an elevated blood pressure reading which brought her to the ED today. Patient denies fever, chills, chest pain, shortness of breath, vision changes, nausea, vomiting, abdominal pain, dysuria, lightheadedness, dizziness, syncope. Patient's PCP has left the current practice and patient has not seen a PCP in a long time. Patient is expressing interest to establish care with a new PCP. Related Data Previous Rx's Medication Instructions Recorded estradiol 0.01% (0.1 mg/gram) 1 g vaginal 2XW #42.5 grams 01/16/23 vaginal cream (Estrace) imipramine HCl 10 mg tablet 10 mg PO TID #180 tabs 04/17/23 vibegron 75 mg tablet (Gemtesa) 75 mg PO DAILY #90 tabs 06/12/23 mirabegron 50 mg tablet,extended 50 mg PO DAILY #90 tabs 09/09/23 release 24 hr Allergies Allergy/AdvReac Type Severity Reaction Status Date / Time No Known Drug Allergies Allergy Verified 11/05/23 12:45 Review of Systems <Chandler Bassett PA-C - Last Filed: 11/05/23 16:23> Constitutional Constitutional: Denies chills, Denies fatigue, Denies fever(s), Denies frequent falls, Reports headache(s), Denies lethargy and Denies weakness Eyes Eyes: Denies change in vision, Denies eye discharge, Denies irritation and Denies loss of vision ENT Ears, Nose, Mouth, and Throat: Denies change in voice, Denies dizziness, Reports headache(s), Denies neck pain, Denies sore throat and Denies throat swelling Cardiovascular Cardiovascular: Denies chest pain, Denies irregular heart rhythm, Denies lightheadedness, Denies palpitations, Denies dyspnea, Denies dyspnea on exertion and Denies orthopnea Respiratory Respiratory: Denies cough, Denies dyspnea, Denies dyspnea on exertion and Denies wheezing Gastrointestinal Gastrointestinal: Denies abdominal pain, Denies change in bowel habits, Denies diarrhea, Denies nausea and Denies vomiting Musculoskeletal Musculoskeletal: Denies neck pain and Denies numbness Integumentary/Breasts Skin/Breast: Denies pruritus, Denies erythema, Denies rash and Denies wounds Neurologic Neurologic: Denies behavioral changes, Denies confusion, Denies dizziness, Denies frequent falls, Reports headache(s), Denies loss of vision, Denies numbness and Denies weakness Psychiatric Psychiatric: Denies anxiety, Denies behavioral changes, Denies confusion, Denies depression, Denies homicidal ideation and Denies suicidal ideation Endocrine Endocrine: Denies fatigue, Denies flushing and Denies palpitations Hematologic/Lymphatic Hematologic/Lymphatic: Denies easy bruising Allergic/Immunologic Allergic/Immunologic: Denies urticaria, Denies throat swelling and Denies wheezing Patient History <Chandler Bassett PA-C - Last Filed: 11/05/23 16:23> Medical History Mixed stress and urge urinary incontinence History of UTI Postmenopausal atrophic vaginitis Osteoarthritis Depression No significant past medical history Surgical History History of hip replacement History of surgery 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) History of dilation of urethra Family History Father Diabetes mellitus Hyperlipidemia Hypertension Mother History of recurrent UTIs Social History marital status: number of children: 2 household members: none Smoking Status: Former smoker alcohol intake: current Type(s) of exercise: other frequency: other Smoking Status: Former smoker alcohol intake frequency: holidays/special occasions only Substance Use Type: marijuana Exam <Chandler Bassett PA-C - Last Filed: 11/05/23 16:23> Narrative Exam Narrative: Const General:?cooperative, healthy appearing and comfortable HENMT Head:?normal to inspection Ears:?hearing grossly normal bilaterally Nose:?external nose normal Face and sinus:?normal facial exam and sinuses nontender Mouth:?oral mucosae normal Throat:?posterior oropharynx normal Eyes General:?appearance normal, both eyes and all related structures Neck Neck:?normal visual inspection and no lymphadenopathy noted Resp Effort & Inspection:?normal respiratory effort Auscultation:?clear to auscultation bilaterally Cardio Rate:?regular rate Rhythm:?regular rhythm Neuro General:?patient alert, patient awake and patient oriented x3; PERRLA; CN 1 through 12 intact bilaterally; gait is normal Initial Vital Signs Initial Vital Signs: Vital Signs Temperature 98.4 F 11/05/23 12:29 Pulse Rate 70 11/05/23 12:29 Respiratory Rate 15 11/05/23 12:29 Blood Pressure 141/74 H 11/05/23 12:29 Pulse Oximetry 96 11/05/23 12:29 Oxygen Delivery Method Room Air 11/05/23 12:29 <Kathie Marie DO - Last Filed: 11/08/23 08:55> Initial Vital Signs Initial Vital Signs: Vital Signs Temperature 98.4 F 11/05/23 12:29 Pulse Rate 70 11/05/23 12:29 Respiratory Rate 15 11/05/23 12:29 Blood Pressure 141/74 H 11/05/23 12:29 Pulse Oximetry 96 11/05/23 12:29 Oxygen Delivery Method Room Air 11/05/23 12:29 Course <YAMEL Dale Last Filed: 11/05/23 16:23> Orders Ordered: Discontinued Medications Acetaminophen (Acetaminophen 325 Mg Tablet) 975 mg PO NOW ONE Stop: 11/05/23 13:09 Last Admin: 11/05/23 13:24 Dose: 975 mg Documented By: SUMMER Dexamethasone (Dexamethasone 10 Mg/Ml Vial) 10 mg IV NOW ONE Stop: 11/05/23 13:09 Last Admin: 11/05/23 13:24 Dose: 10 mg Documented By: BS Diphenhydramine HCl (Diphenhydramine 50 Mg/Ml Vial) 25 mg IV NOW ONE Stop: 11/05/23 13:09 Last Admin: 11/05/23 13:24 Dose: 25 mg Documented By: SUMMER Ketorolac Tromethamine (Ketorolac 30 Mg/Ml Vial) 15 mg IV NOW ONE Stop: 11/05/23 13:09 Last Admin: 11/05/23 14:21 Dose: 15 mg Documented By: JEANNETTE Metoclopramide HCl (Metoclopramide 10 Mg/2 Ml Inj) 10 mg IV NOW ONE Stop: 11/05/23 13:09 Last Admin: 11/05/23 13:24 Dose: 10 mg Documented By: SUMMER Vital Signs Vital signs: Vital Signs - 8 hr 11/05/23 12:29 11/05/23 12:35 11/05/23 12:36 Temperature 98.4 F Pulse Rate 70 71 Respiratory Rate 15 Blood Pressure 141/74 H 141/74 H Pulse Oximetry 96 97 Oxygen Delivery Method Room Air 11/05/23 12:36 11/05/23 13:00 11/05/23 13:20 Temperature Pulse Rate 71 65 63 Respiratory Rate 17 23 Blood Pressure Pulse Oximetry 96 97 93 Oxygen Delivery Method 11/05/23 13:20 11/05/23 13:30 11/05/23 13:30 Temperature Pulse Rate 62 Respiratory Rate 24 Blood Pressure 139/76 145/83 H Pulse Oximetry 95 Oxygen Delivery Method 11/05/23 14:00 11/05/23 14:01 11/05/23 14:01 Temperature Pulse Rate 63 64 Respiratory Rate 22 23 Blood Pressure 175/98 H Pulse Oximetry 97 96 Oxygen Delivery Method 11/05/23 14:30 11/05/23 14:31 11/05/23 14:31 Temperature Pulse Rate 65 63 Respiratory Rate 22 22 Blood Pressure 165/72 H Pulse Oximetry 94 95 Oxygen Delivery Method 11/05/23 15:00 11/05/23 15:01 11/05/23 15:01 Temperature Pulse Rate 66 63 Respiratory Rate 23 25 H Blood Pressure 145/103 H Pulse Oximetry 94 93 Oxygen Delivery Method <Kathie Marie DO - Last Filed: 11/08/23 08:55> Orders Ordered: Discontinued Medications Acetaminophen (Acetaminophen 325 Mg Tablet) 975 mg PO NOW ONE Stop: 11/05/23 13:09 Last Admin: 11/05/23 13:24 Dose: 975 mg Documented By: BS Dexamethasone (Dexamethasone 10 Mg/Ml Vial) 10 mg IV NOW ONE Stop: 11/05/23 13:09 Last Admin: 11/05/23 13:24 Dose: 10 mg Documented By: BS Diphenhydramine HCl (Diphenhydramine 50 Mg/Ml Vial) 25 mg IV NOW ONE Stop: 11/05/23 13:09 Last Admin: 11/05/23 13:24 Dose: 25 mg Documented By: BS Ketorolac Tromethamine (Ketorolac 30 Mg/Ml Vial) 15 mg IV NOW ONE Stop: 11/05/23 13:09 Last Admin: 11/05/23 14:21 Dose: 15 mg Documented By: JEANNETTE Metoclopramide HCl (Metoclopramide 10 Mg/2 Ml Inj) 10 mg IV NOW ONE Stop: 11/05/23 13:09 Last Admin: 11/05/23 13:24 Dose: 10 mg Documented By: BS Vital Signs Vital signs: Vital Signs - 8 hr 11/05/23 12:29 11/05/23 12:35 11/05/23 12:36 Temperature 98.4 F Pulse Rate 70 71 Respiratory Rate 15 Blood Pressure 141/74 H 141/74 H Pulse Oximetry 96 97 Oxygen Delivery Method Room Air 11/05/23 12:36 11/05/23 13:00 11/05/23 13:20 Temperature Pulse Rate 71 65 63 Respiratory Rate 17 23 Blood Pressure Pulse Oximetry 96 97 93 Oxygen Delivery Method 11/05/23 13:20 11/05/23 13:30 11/05/23 13:30 Temperature Pulse Rate 62 Respiratory Rate 24 Blood Pressure 139/76 145/83 H Pulse Oximetry 95 Oxygen Delivery Method 11/05/23 14:00 11/05/23 14:01 11/05/23 14:01 Temperature Pulse Rate 63 64 Respiratory Rate 22 23 Blood Pressure 175/98 H Pulse Oximetry 97 96 Oxygen Delivery Method 11/05/23 14:30 11/05/23 14:31 11/05/23 14:31 Temperature Pulse Rate 65 63 Respiratory Rate 22 22 Blood Pressure 165/72 H Pulse Oximetry 94 95 Oxygen Delivery Method 11/05/23 15:00 11/05/23 15:01 11/05/23 15:01 Temperature Pulse Rate 66 63 Respiratory Rate 23 25 H Blood Pressure 145/103 H Pulse Oximetry 94 93 Oxygen Delivery Method Medical Decision Making <Chandler Bassett PA-C - Last Filed: 11/05/23 16:23> MDM Narrative Medical decision making narrative: 68-year-old female presents to the ED with 2 weeks of headache, elevated blood pressure. Concern for primary headache versus intracranial abnormality versus high blood pressure reading versus other. It is reassuring that in the ED, patient's blood pressure is 141/74. Vitals are otherwise within normal limits. Given that patient does not normally have headaches, will obtain head CT. Will treat the headache. Will reassess. EKG is normal sinus rhythm with no acute ST-T changes. Head CT without acute findings. Patient's symptoms resolved with pain medications and IV fluids. Patient agrees to establish with a new PCP for further evaluation of the blood pressure. Gave patient the list of new PCPs in the area. Recommend patient stop the metoprolol that she has been self medicating with and getting a baseline set of blood pressure readings at home for the next several days prior to seeing her PCP. Recommend Tylenol, ibuprofen for headaches. ED return precautions were discussed with patient. Patient verbalized understanding. Medical records reviewed: Yes. Discharge Plan Departure Patient Disposition: Home Clinical Impression: High blood pressure Qualifiers: Hypertension type: unspecified Qualified Code(s): I10 - Essential (primary) hypertension Headache Qualifiers: Headache type: unspecified Headache chronicity pattern: unspecified pattern Intractability: not intractable Qualified Code(s): R51.9 - Headache, unspecified Instructions: DI for High Blood Pressure, DI for Headache Activity Restrictions/Additional Instructions: You were evaluated in the ED today for a headache and high blood pressure reading. Your headache responded well to the medications. Your head CT was normal as well. It appears that you are noting some sporadic high blood pressure readings at home. It is reassuring however that your blood pressure was 141/74 when you came into the ED today. There are several factors that could cause elevated blood pressure readings including the wrong size blood pressure cuff, stress, pain, dehydration. Please ensure that your blood pressure cuff is the right size for your arm and do continue to record your blood pressure is twice a day for the next several days. Please take the blood pressure log to your PCP. We have also given you a list of new PCPs that are accepting patients for you to establish care with. In the meanwhile, please discontinue the metoprolol so you can get accurate baseline blood pressure readings. You may take Tylenol or ibuprofen for a headache. Please stay well hydrated. Return to the ED if you have worsening symptoms, chest pain, shortness of breath, vision changes. Prescriptions: No Action mirabegron 50 mg tablet extended release 24 hr 50 mg PO DAILY Qty: 90 1RF estradiol [Estrace] 0.01 % (0.1 mg/gram) cream 1 g vaginal 2XW Qty: 42.5 3RF Rx Instructions: Insert 1 g intravaginally as directed per provided patient information instructions/literature. imipramine HCl 10 mg tablet 10 mg PO TID Qty: 180 3RF Rx Instructions: Take 10-40 mg by mouth every 8 hours as needed and as instructed. Gemtesa 75 mg tablet 75 mg PO DAILY Qty: 90 3RF Referrals: Miscellaneous,Doctor, MD [Primary Care Provider] - Stand Alone Forms: Patient Portal/API ED Sign-out <Kathie Marie DO - Last Filed: 11/08/23 08:55> Cosign ED Attending Pari Attestation: I was immediately available in the department for consultation.
[2023-11-05] MEDS: KETOROLAC 30 MG/ML VIAL 15 MG IV (14:21)
== END 2023-11-05 15:26 | disposition home or self-care (01) ==
PROVIDERS: Emergency Provider Student in an Organized Health Care Education/Training Program
DX: I10 Essential (primary) hypertension (principal); R51.9 Headache, unspecified
CPT/HCPCS: 36415; 70450; 93005; 96374; 96375; 99284; J1100; J1200; J1885; J2765

== ENCOUNTER → 2025-06-08 11:07 | Outpatient (CLI) | payer OTHER, SELFPAY ==
[2021-11-07 11:32] VITALS: BMI 34.0
--- NOTE | 2025-06-08 11:07 | DI.RAD.S_ITS ---
PROCEDURE: XR DEXA AXIAL SKELETON INDICATIONS: ostopenia screening COMPARISON: None. FINDINGS: Lumbar Spine: Bone mineral density 0.74 g/cm2, T score -2.8,. Left Femoral Neck: Bone mineral density 0.54 g/cm2, T score -2.7. Left Hip: Bone mineral density 0.63 g/cm2, T score -2.6, Fracture Risk Calculation (when applicable): Not applicable IMPRESSION: Osteoporosis Follow-up guidelines as follows: Osteoporosis: Consider a repeat DEXA and Vertebral Fracture Assessment (VFA) exam in 2 years or sooner if medically necessary, to reassess this patient's status. Osteopenia: Consider a repeat DEXA in 2-3 years to reassess this patient's status, or if there is a new clinical indication. Normal: Consider a repeat DEXA in 5 years or sooner, or if there is a new clinical indication. All treatment decisions require clinical judgment and consideration of individual patient factors, including patient preferences, comorbidities, previous drug use, risk factors not captured in the FRAX model (e.g., frailty, falls, vitamin D deficiency, increased bone turnover, interval significant decline in bone density ) and possible under- or over-estimation of fracture risk by FRAX. In addition, the NOF Guide recommends that FDA-approved medical therapies be considered in postmenopausal women and men age >= 50 years with a: * Hip or vertebral (clinical or morphometric) fracture * T-score of <=-2.5 at the spine or hip * Ten-year fracture probability by FRAX of >= 3% for hip fracture or >=20% for major osteoporotic fracture. Dictated by: Audi Peter M.D. on 06/08/2025 at 12:34 Approved by: Audi Peter M.D. on 06/08/2025 at 12:45
== END ==
LOC: RAD 11:07
PROVIDERS: PCP Nurse Practitioner Family; Referring Provider Nurse Practitioner Family; Visit Provider Nurse Practitioner Family
DX: M81.0 Age-related osteoporosis without current pathological fracture (principal); M85.89 Other specified disorders of bone density and structure, multiple sites; Z78.0 Asymptomatic menopausal state
CPT/HCPCS: 77080

== ENCOUNTER → 2025-06-11 12:45 | Outpatient (CLI) | payer OTHER, SELFPAY ==
[2021-11-07 11:32] VITALS: BMI 34.0
== END ==
PROVIDERS: PCP Nurse Practitioner Family; Visit Provider Urology
DX: Z87.440 Personal history of urinary (tract) infections (principal)
CPT/HCPCS: 87086

== ENCOUNTER → 2025-06-16 10:13 | Outpatient (CLI) | payer OTHER, SELFPAY ==
[2021-11-07 11:32] VITALS: BMI 34.0
--- NOTE | 2025-06-16 10:14 | DI.MG.S_ITS ---
MM screening mammo BI: 06/16/2025. BI-RADS: 1 CLINICAL: 70-year old female for bilateral screening mammogram. Tyrer-Cuzick lifetime risk of 9.2%. No personal or first-degree family history of breast cancer. Current reported family history of breast cancer: paternal aunt and second paternal aunt. PRIOR EXAMS 07/02/2022, 06/06/2018. MAMMOGRAPHY TECHNIQUE: 2D and 3D (tomosynthesis) digital mammographic views obtained, with additional images as needed for full coverage. Current study was also evaluated with a Computer Aided Detection (CAD) system. DENSITY B. There are scattered areas of fibroglandular density. MAMMOGRAPHY FINDINGS Bilateral: No suspicious mass, asymmetry, microcalcification, or other abnormality seen. IMPRESSION: * No evidence of malignancy. RECOMMENDATIONS Bilateral * Annual screening mammography. OVERALL ASSESSMENT CATEGORY BI-RADS-1: Negative. The [employer] recommends annual screening mammography beginning at age 40 for women with average risk of breast cancer. ELECTRONICALLY SIGNED: Ashley Rouse M.D. on 06/16/2025 at 05:27:28 PM PT Interpreting Station ID: [id number]
== END ==
LOC: MAMMO 10:14
PROVIDERS: PCP Nurse Practitioner Family; Referring Provider Nurse Practitioner Family; Visit Provider Nurse Practitioner Family
DX: Z12.31 Encounter for screening mammogram for malignant neoplasm of breast (principal); Z80.3 Family history of malignant neoplasm of breast
CPT/HCPCS: 77063; 77067